=== PATIENT | female | born 1945 | race Caucasian/White ===

== ENCOUNTER → 2017-05-26 | Outpatient (CLI) | payer OTHER ==
[~2017-05-26] MED LIST: AMIO200T2 PO; APIX5TAB PO; ASPI-555 PO; DRON400T2 PO; METO-408 PO
== END | disposition home or self-care (01) ==
LOC: RAH 08:19
PROVIDERS: ATTEND Internal Medicine Cardiovascular Disease
DX: E78.00 Pure hypercholesterolemia, unspecified (principal); E74.8 Other specified disorders of carbohydrate metabolism
CPT/HCPCS: 76705

== ENCOUNTER → 2017-06-03 | Outpatient (CLI) | payer OTHER | END | disposition home or self-care (01) | LOC: SHCH 12:32 | PROVIDERS: ATTEND Internal Medicine Cardiovascular Disease | DX: I08.1 Rheumatic disorders of both mitral and tricuspid valves (principal); I31.3 Pericardial effusion (noninflammatory) | CPT/HCPCS: 93306 ==

== ENCOUNTER 2017-06-17 20:26 | Inpatient (IN) | payer OTHER ==
[~2017-06-17] VITALS: Ht 162.6 cm; Wt 59.6 kg
[2017-06-17] MEDS ORDERED: APIXABAN 2.5 MG TABLET PO ONE (20:47)
[2017-06-17] MEDS ORDERED: METOPROLOL TARTRATE 25 MG TAB ONE (20:48)
[2017-06-17 21:05] LABS: BASOPHILS % (AUTO) 1.2 % (0.0-5.0); EOSINOPHILS % (AUTO) 1.2 % (0.0-8.0); HEMATOCRIT 37.2 % (36-48); LYMPHOCYTES % (AUTO) 23.1 % (21.0-51.0); MEAN CORPUSCULAR HEMOGLOBIN 28.7 pg (27.0-33.0); MEAN CORPUSCULAR HGB CONC 34.2 g/dL (32.0-36.0); MEAN CORPUSCULAR VOLUME 84.1 fL (79-99); MONOCYTES % (AUTO) 6.2 % (3.0-13.0); NEUTROPHILS % (AUTO) 68.3 % (40.0-77.0); PLATELET COUNT (AUTO) 231 K/uL (130-400); RED BLOOD CELL COUNT(AUTO) 4.42 MIL/uL (4.00-5.50); RED CELL DISTRIBUTION WIDTH 15.3 % (11.0-15.5)
[2017-06-17 21:14] LABS: CREATININE 0.8 mg/dL (0.5-1.5); POTASSIUM 4.1 mmol/L (3.5-5.1)
[2017-06-17 21:15] LABS: INR 1.02 (0.85-1.15); PARTIAL THROMBOPLASTIN TIME 22.9 SEC (26.3-35.5); PROTHROMBIN TIME 10.7 SEC (9.6-11.6)
[2017-06-17 21:18] LABS: BILIRUBIN,TOTAL 0.7 mg/dL (0.2-1.0); TOTAL PROTEIN, SERUM 7.7 g/dL (6.0-8.3)
[2017-06-17] MEDS ORDERED: METOPROLOL TARTRATE 1 MG/ML 5ML VIAL IV ONE (23:14)
[2017-06-17 23:38] VITALS: BP 98/83
[2017-06-17] MEDS ORDERED: ASPI-555 PO (23:42)
[2017-06-18] VITALS (29 sets, daily range): BP systolic 75–150; BP diastolic 40–107
[2017-06-18] MEDS ORDERED: VERAPAMIL HCL 2.5 MG/ML VIAL IVP ONE (01:33)
[2017-06-18] MEDS ORDERED: LIDOCAINE HCL-MPF 1% 2ML VIAL IVP PRN (01:45)
[2017-06-18] MEDS ORDERED: POTASSIUM CHLORIDE 20 MEQ ERTAB PO PRN (01:45)
[2017-06-18] MEDS ORDERED: POTASSIUM CHLORIDE 10% ELIXIR 20 MEQ/15 ML UDCUP PO PRN (01:45)
[2017-06-18] MEDS: VERAPAMIL HCL 2.5 MG/ML VIAL IVP SCH (01:45)
[2017-06-18] MEDS ORDERED: POTASSIUM CHLORIDE 20MEQ/100ML 100 ML IV PRN (01:45)
[2017-06-18] MEDS ORDERED: ONDANSETRON HCL MDV 20ML 2 MG/ML VIAL ONE ×2 (03:02→07:45)
[2017-06-18] MEDS: ONDANSETRON HCL 4 MG/2 ML VIAL IV PRN ×2 (03:05→07:55)
[2017-06-18] MEDS ORDERED: METOPROLOL TARTRATE 1 MG/ML 5ML VIAL IV PRN (03:30)
[2017-06-18 05:05] LABS: BASOPHILS % (AUTO) 0.9 % (0.0-5.0); EOSINOPHILS % (AUTO) 0.5 % (0.0-8.0); HEMATOCRIT 38.5 % (36-48); LYMPHOCYTES % (AUTO) 14.2 % (21.0-51.0); MEAN CORPUSCULAR HEMOGLOBIN 28.3 pg (27.0-33.0); MEAN CORPUSCULAR HGB CONC 33.5 g/dL (32.0-36.0); MEAN CORPUSCULAR VOLUME 84.6 fL (79-99); MONOCYTES % (AUTO) 5.5 % (3.0-13.0); NEUTROPHILS % (AUTO) 78.9 % (40.0-77.0); PLATELET COUNT (AUTO) 228 K/uL (130-400); RED BLOOD CELL COUNT(AUTO) 4.54 MIL/uL (4.00-5.50); RED CELL DISTRIBUTION WIDTH 15.5 % (11.0-15.5); WHITE BLOOD COUNT (AUTO) 9.3 K/uL (4.8-10.8)
[2017-06-18 05:32] LABS: INR 1.12 (0.85-1.15); PARTIAL THROMBOPLASTIN TIME 23.8 SEC (26.3-35.5); PROTHROMBIN TIME 11.7 SEC (9.6-11.6)
[2017-06-18 05:47] LABS: ALBUMIN 3.5 g/dL (3.5-5.0); BILIRUBIN,TOTAL 1.2 mg/dL (0.2-1.0); CREATININE 1.2 mg/dL (0.5-1.5); POTASSIUM 4.7 mmol/L (3.5-5.1); TOTAL PROTEIN, SERUM 6.5 g/dL (6.0-8.3)
[2017-06-18] MEDS: METOPROLOL TARTRATE 25 MG TAB PO SCH ×2 (06:00→11:02)
[2017-06-18] MEDS ORDERED: MAG HYDROX/AL HYDROX/SIMETH ES 30 ML SUSP UDCUP PO PRN (06:30)
[2017-06-18] MEDS ORDERED: ACETAMINOPHEN 325 MG TAB PO PRN ×2 (06:30)
[2017-06-18] MEDS ORDERED: MORPHINE SULFATE 2 MG/ML 1ML SYG IV PRN (06:30)
[2017-06-18] MEDS ORDERED: ONDANSETRON HCL 4 MG/2 ML VIAL IV PRN (06:30)
[2017-06-18] MEDS ORDERED: GUAIFENESIN-DM 200/20 MG 10 ML PO PRN (06:30)
[2017-06-18] MEDS ORDERED: ACETAMINOPHEN-CODEINE 300/30MG TAB PO PRN (06:30)
[2017-06-18] MEDS ORDERED: LACTULOSE 20 GM/30 ML UDCUP PO PRN (06:30)
[2017-06-18] MEDS ORDERED: NITROGLYCERIN 0.4 MG SL TAB SL PRN (06:30)
[2017-06-18 06:54] LABS: MAGNESIUM 2.3 mg/dL (1.80-2.40); PHOSPHORUS 4.1 mg/dL (2.5-4.9)
[2017-06-18] MEDS ORDERED: SODIUM CHLORIDE 0.9% 1000ML 1,000 ML IV ONE (08:30)
[2017-06-18] MEDS: ASPIRIN 81 MG EC TAB PO SCH (09:00)
[2017-06-18] MEDS: FAMOTIDINE/PF 20 MG/2 ML VIAL IV SCH ×2 (09:00→21:00)
[2017-06-18] MEDS ORDERED: FENTANYL CITRATE PF 50 MCG/1 ML 2ML VIAL ONE (09:49)
[2017-06-18] MEDS ORDERED: MIDAZOLAM HCL 1 MG/ML 2ML VIAL ONE ×4 (09:49→13:41)
[2017-06-18] MEDS: BENZOCAINE 20% 57 GM SPRAY TP SCH (10:00)
[2017-06-18] MEDS ORDERED: HEPARIN SODIUM 1000UNIT/ML 10ML VIAL ONE (11:14)
[2017-06-18] MEDS ORDERED: LIDOCAINE HCL 2% 20ML ONE (11:14)
[2017-06-18] MEDS ORDERED: MEPERIDINE-PF 25 MG/ML SYG ONE ×3 (11:30→13:41)
[2017-06-18] MEDS ORDERED: AMIODARONE HCL 900MG/18ML IV ONE (13:45)
[2017-06-18] MEDS ORDERED: FLUMAZENIL 0.1MG/1ML 5ML VIAL IV ONE (14:19)
[2017-06-18] MEDS: DRONEDARONE HYDROCHLORIDE 400 MG TABLET PO SCH ×2 (15:00→21:55)
[2017-06-18] MEDS: APIXABAN 5 MG TABLET PO SCH (21:00)
[2017-06-18] MEDS ORDERED: APIXABAN 2.5 MG TABLET PO ONE (21:18)
[2017-06-19] VITALS: BP 103/48
[2017-06-19] MEDS: VERAPAMIL HCL 2.5 MG/ML VIAL IVP SCH (01:45)
[2017-06-19 04:00] VITALS: BP 120/68
[2017-06-19 04:49] LABS: ALBUMIN 3.3 g/dL (3.5-5.0); BILIRUBIN,TOTAL 0.9 mg/dL (0.2-1.0); CREATININE 1.3 mg/dL (0.5-1.5); MAGNESIUM 2.2 mg/dL (1.80-2.40); PHOSPHORUS 5.1 mg/dL (2.5-4.9); POTASSIUM 4.9 mmol/L (3.5-5.1); TOTAL PROTEIN, SERUM 6.3 g/dL (6.0-8.3)
[2017-06-19 05:09] LABS: HEMATOCRIT 35.6 % (36-48); MEAN CORPUSCULAR HEMOGLOBIN 28.6 pg (27.0-33.0); MEAN CORPUSCULAR VOLUME 84.3 fL (79-99); NUCLEATED RED BLOOD CELLS 0.1 % (0.0-0.19); PLATELET COUNT (AUTO) 260 K/uL (130-400); RED BLOOD CELL COUNT(AUTO) 4.22 MIL/uL (4.00-5.50); RED CELL DISTRIBUTION WIDTH 15.3 % (11.0-15.5); WHITE BLOOD COUNT (AUTO) 10.4 K/uL (4.8-10.8)
[2017-06-19 06:36] LABS: BAND NEUTROPHILS % (MANUAL) 6 % (0-2); LYMPHOCYTES % (MANUAL) 9 % (22-44); MAN.DIFF COMMENT-IMPRESSION MANUAL DIFFERENTIAL; MONOCYTES % (MANUAL) 5 % (2-9); PLATELET MORPHOLOGY COMMENT ADEQUATE; SEGMENTED NEUTROPHILS % 80 % (40-70)
[2017-06-19] MEDS: BENZOCAINE 20% 57 GM SPRAY TP SCH (07:32)
[2017-06-19 08:00] VITALS: BP 120/72
[2017-06-19] MEDS: DRONEDARONE HYDROCHLORIDE 400 MG TABLET PO SCH (08:18)
[2017-06-19] MEDS: ASPIRIN 81 MG EC TAB PO SCH (08:19)
[2017-06-19] MEDS: APIXABAN 5 MG TABLET PO SCH (08:28)
[2017-06-19] MEDS ORDERED: FAMOTIDINE 20MG TAB 20 MG TAB PO SCH (09:00)
[2017-06-19 11:26] VITALS: BP 122/76
[2017-06-19 16:40] VITALS: BP 122/84
[2017-07-22] MEDS ORDERED: AMIO200T2 PO (11:43)
== END 2017-06-19 19:25 | disposition home or self-care (01) | DRG 274 ==
LOC: EDH 20:26 → EDHIP 21:26 → 2DH 23:26 → 2CV 06-18 06:55 → 2BH 06-18 08:26 → 2AH 06-18 18:36
PROVIDERS: ADMIT Internal Medicine; ATTEND Internal Medicine
PROC: 4A027FZ Measurement of Cardiac Rhythm, Via Natural or Artificial Opening (ICD-10-PCS; principal; 2017-06-19)
PROC: 4A0274Z Measurement of Cardiac Electrical Activity, Via Natural or Artificial Opening (ICD-10-PCS; 2017-06-19)
PROC: 5A2204Z Restoration of Cardiac Rhythm, Single (ICD-10-PCS; 2017-06-19)
DX: I48.92 Unspecified atrial flutter (principal); I42.9 Cardiomyopathy, unspecified; E78.5 Hyperlipidemia, unspecified; I48.91 Unspecified atrial fibrillation; Z79.01 Long term (current) use of anticoagulants; Z82.49 Family history of ischemic heart disease and other diseases of the circulatory system; Z28.21 Immunization not carried out because of patient refusal
CPT/HCPCS: 36415; 71045; 74176; 76705; 80053; 83735; 84100; 85025; 85610; 85730; 92960; 93005; 93306; 93312; 93613; 93620; 93621; 99152; 99153; C1730; C1732; C1894; J0282; J1644; J2175; J2250; J3010; J3490; J7030

== ENCOUNTER 2017-07-20 08:03 | Observation (INO) | payer OTHER ==
[~2017-07-20] VITALS: Ht 162.6 cm; Wt 55.1 kg
[~2017-07-20 08:03] MED LIST changes: -AMIO200T2 PO; -APIX5TAB PO; -DRON400T2 PO; -METO-408 PO
[2017-07-20] MEDS ORDERED: ASPIRIN 325 MG TABLET ONE (08:20)
[2017-07-20] MEDS ORDERED: METOPROLOL TARTRATE 1 MG/ML 5ML VIAL IV ONE ×3 (08:23→08:57)
[2017-07-20 08:36] LABS: POTASSIUM 4.2 mmol/L (3.5-5.1)
[2017-07-20 08:40] LABS: BASOPHILS % (AUTO) 3.5 % (0.0-5.0); EOSINOPHILS % (AUTO) 1.4 % (0.0-8.0); HEMATOCRIT 46.6 % (36-48); MEAN CORPUSCULAR HEMOGLOBIN 27.3 pg (27.0-33.0); MEAN CORPUSCULAR HGB CONC 32.8 g/dL (32.0-36.0); MEAN CORPUSCULAR VOLUME 83.4 fL (79-99); MONOCYTES % (AUTO) 7.1 % (3.0-13.0); NUCLEATED RED BLOOD CELLS 0.1 % (0.0-0.19); PLATELET COUNT (AUTO) 291 K/uL (130-400); RED BLOOD CELL COUNT(AUTO) 5.59 MIL/uL (4.00-5.50); RED CELL DISTRIBUTION WIDTH 15.1 % (11.0-15.5); WHITE BLOOD COUNT (AUTO) 8.4 K/uL (4.8-10.8)
[2017-07-20 08:41] LABS: INR 1.01 (0.85-1.15); PARTIAL THROMBOPLASTIN TIME 25.9 SEC (26.3-35.5); PROTHROMBIN TIME 10.6 SEC (9.6-11.6)
[2017-07-20 08:49] LABS: ALBUMIN 4.1 g/dL (3.5-5.0); BILIRUBIN,TOTAL 0.4 mg/dL (0.2-1.0); CREATINE KINASE MB 0.8 ng/mL (0.5-3.6); TOTAL PROTEIN, SERUM 8.1 g/dL (6.0-8.3)
[2017-07-20 08:52] LABS: B-TYPE NATRIURETIC PEPTIDE 202 pg/mL (0-100)
[2017-07-20] MEDS ORDERED: ACETAMINOPHEN 325 MG TAB PO PRN ×2 (10:00)
[2017-07-20] MEDS ORDERED: GUAIFENESIN-DM 200/20 MG 10 ML PO PRN (10:00)
[2017-07-20] MEDS ORDERED: ONDANSETRON HCL MDV 20ML 2 MG/ML VIAL IVP PRN (10:00)
[2017-07-20] MEDS ORDERED: MAG HYDROX/AL HYDROX/SIMETH ES 30 ML SUSP UDCUP PO PRN (10:00)
[2017-07-20] MEDS ORDERED: LACTULOSE 20 GM/30 ML UDCUP PO PRN (10:00)
[2017-07-20] MEDS ORDERED: NITROGLYCERIN 0.4 MG SL TAB SL PRN (10:00)
[2017-07-20] MEDS ORDERED: DIGOXIN 250 MCG/ML 2ML AMP ONE (10:39)
[2017-07-20] MEDS ORDERED: DIGOXIN 250 MCG/ML 2ML AMP IV SCH (10:45)
[2017-07-20 14:50] VITALS: BP 119/75
[2017-07-20 16:41] VITALS: BP 109/58
[2017-07-20 19:41] VITALS: BP 109/75
[2017-07-20] MEDS: APIXABAN 5 MG TABLET PO SCH (19:52)
[2017-07-20] MEDS: METOPROLOL TARTRATE 25 MG TAB PO SCH (19:52)
[2017-07-20] MEDS: FAMOTIDINE/PF 20 MG/2 ML VIAL IV SCH (19:53)
[2017-07-20] MEDS: DRONEDARONE HYDROCHLORIDE 400 MG TABLET PO SCH (20:15)
[2017-07-20 23:53] VITALS: BP 91/60
[2017-07-21 04:00] VITALS: BP 94/55
[2017-07-21 04:46] LABS: CREATININE 1.2 mg/dL (0.5-1.5); MAGNESIUM 2.1 mg/dL (1.80-2.40); PHOSPHORUS 4.4 mg/dL (2.5-4.9); POTASSIUM 5.6 mmol/L (3.5-5.1)
[2017-07-21 07:54] VITALS: BP 104/76
[2017-07-21] MEDS: FAMOTIDINE/PF 20 MG/2 ML VIAL IV SCH ×2 (08:29→20:26)
[2017-07-21] MEDS: APIXABAN 5 MG TABLET PO SCH ×2 (08:29→20:26)
[2017-07-21] MEDS: METOPROLOL TARTRATE 25 MG TAB PO SCH ×2 (08:29→20:26)
[2017-07-21] MEDS: DRONEDARONE HYDROCHLORIDE 400 MG TABLET PO SCH (08:29)
[2017-07-21] MEDS ORDERED: ASPIRIN 81MG TAB.CHEW PO SCH (09:00)
[2017-07-21] MEDS ORDERED: ASPIRIN 325 MG TABLET PO SCH (09:00)
[2017-07-21] MEDS ORDERED: MORPHINE SULFATE 4 MG/1ML SYG IVP PRN ×2 (09:00→09:15)
[2017-07-21] MEDS ORDERED: MORPHINE SULFATE 2 MG/ML 1ML SYG IVP PRN (09:00)
[2017-07-21] MEDS ORDERED: ACETAMINOPHEN-CODEINE 300/30MG TAB PO PRN ×2 (09:00)
[2017-07-21 11:48] VITALS: BP 110/71
[2017-07-21 16:46] VITALS: BP 100/64
[2017-07-21] MEDS ORDERED: AMIODARONE HCL 900 MG in DEXTROSE 5%-WATER 500 ML IV SCH (19:00)
[2017-07-21] MEDS ORDERED: AMIODARONE HCL 150 MG in DEXTROSE 5%-WATER 100 ML IV SCH (19:00)
[2017-07-21 20:17] VITALS: BP 120/70
[2017-07-22 01:22] VITALS: BP 107/68
[2017-07-22 04:01] VITALS: BP 124/75
[2017-07-22 04:23] LABS: HEMATOCRIT 43.4 % (36-48); MEAN CORPUSCULAR HEMOGLOBIN 27.8 pg (27.0-33.0); MEAN CORPUSCULAR HGB CONC 33.2 g/dL (32.0-36.0); PLATELET COUNT (AUTO) 258 K/uL (130-400); RED BLOOD CELL COUNT(AUTO) 5.17 MIL/uL (4.00-5.50); RED CELL DISTRIBUTION WIDTH 14.9 % (11.0-15.5); WHITE BLOOD COUNT (AUTO) 7.7 K/uL (4.8-10.8)
[2017-07-22 04:35] LABS: POTASSIUM 5.5 mmol/L (3.5-5.1)
[2017-07-22] MEDS: METOPROLOL TARTRATE 25 MG TAB PO SCH (06:54)
[2017-07-22 08:01] VITALS: BP 147/70
[2017-07-22] MEDS ORDERED: PROPOFOL 10 MG/ML 20ML VIAL IV ONE (11:14)
[2017-07-22 11:39] VITALS: BP 108/59
[2017-07-22] MEDS ORDERED: AMIO200T5 PO (11:43)
[2017-07-22] MEDS ORDERED: METO-408 PO (11:43)
[2017-07-22] MEDS ORDERED: APIX5TAB PO (11:44)
[2017-07-22] MEDS ORDERED: DRON400T2 PO (11:44)
[2017-07-22] MEDS ORDERED: AMIODARONE HCL 200 MG TABLET PO SCH (15:00)
[2017-07-22 16:32] VITALS: BP 102/60
== END 2017-07-22 18:15 | disposition home or self-care (01) ==
LOC: EDH 08:03 → EDHIP 09:47 → 2DH 15:04
PROVIDERS: ADMIT Family Medicine; ATTEND Family Medicine
DX: I48.4 Atypical atrial flutter (principal); I48.91 Unspecified atrial fibrillation; I45.89 Other specified conduction disorders; Z86.718 Personal history of other venous thrombosis and embolism; D68.69 Other thrombophilia; Z79.01 Long term (current) use of anticoagulants; N19 Unspecified kidney failure; I42.9 Cardiomyopathy, unspecified; I34.0 Nonrheumatic mitral (valve) insufficiency; E78.5 Hyperlipidemia, unspecified
CPT/HCPCS: 36415 ×3; 71045; 80048 ×2; 80053; 82550; 82553; 82948 ×3; 83735; 83874; 83880; 84100; 84132; 84443; 84484; 85025; 85027; 85610; 85730; 92960; 93005 ×2; 93970; 96365; 96366 ×2; 96375 ×2; 96376; 99291; G0378 ×56; J0282 ×2; J1160; J2704; J3490 ×6; J7060 ×2

== ENCOUNTER → 2017-09-04 | Outpatient (CLI) | payer OTHER ==
[~2017-09-04] MED LIST changes: +AMIO200T5 PO; +APIX5TAB PO; -ASPI-555 PO; +METO-408 PO
== END | disposition home or self-care (01) ==
LOC: SHCH 10:24
PROVIDERS: ATTEND Internal Medicine Cardiovascular Disease
DX: I48.4 Atypical atrial flutter (principal)
CPT/HCPCS: 93306

== ENCOUNTER → 2017-12-11 | Outpatient (CLI) | payer OTHER | END | disposition home or self-care (01) | LOC: RAH 07:41 | PROVIDERS: ATTEND Physician Assistant Medical | DX: R92.8 Other abnormal and inconclusive findings on diagnostic imaging of breast (principal) | CPT/HCPCS: 77066 ==

== ENCOUNTER → 2018-03-16 | Outpatient (CLI) | payer OTHER | END | disposition home or self-care (01) | LOC: SHCH 08:08 | PROVIDERS: ATTEND Internal Medicine Cardiovascular Disease | DX: I34.0 Nonrheumatic mitral (valve) insufficiency (principal); I50.32 Chronic diastolic (congestive) heart failure; I63.9 Cerebral infarction, unspecified | CPT/HCPCS: 93306 ==

== ENCOUNTER 2018-05-11 05:54 | Day surgery (SDC) | payer OTHER ==
[2018-05-08 08:56] VITALS: BP 171/76
[2018-05-08 09:05] LABS: BASOPHILS % (AUTO) 1.7 % (0.0-5.0); EOSINOPHILS % (AUTO) 1.8 % (0.0-8.0); HEMATOCRIT 38.2 % (36-48); LYMPHOCYTES % (AUTO) 20.1 % (21.0-51.0); MEAN CORPUSCULAR HEMOGLOBIN 28.3 pg (27.0-33.0); MEAN CORPUSCULAR HGB CONC 32.7 g/dL (32.0-36.0); MEAN CORPUSCULAR VOLUME 86.8 fL (79-99); MONOCYTES % (AUTO) 7.8 % (3.0-13.0); NEUTROPHILS % (AUTO) 68.6 % (40.0-77.0); NUCLEATED RED BLOOD CELLS 0.1 % (0.0-0.19); PLATELET COUNT (AUTO) 253 K/uL (130-400); RED CELL DISTRIBUTION WIDTH 15.2 % (11.0-15.5); WHITE BLOOD COUNT (AUTO) 6.3 K/uL (4.8-10.8)
[2018-05-08 09:07] LABS: APPEARANCE,URINE Clear (CLEAR); BILIRUBIN,URINE Negative (NEGATIVE); COLOR,URINE Yellow (YELLOW); GLUCOSE, URINE (UA) Negative (NEGATIVE); KETONES,URINE Negative (NEGATIVE); LEUKOCYTE ESTERASE ,URINE Negative (NEGATIVE); NITRATE,URINE Negative (NEGATIVE); OCCULT BLOOD,URINE Negative (NEGATIVE); PH,URINE 5.5 (5.0-8.0); PROTEIN,URINE Negative (NEGATIVE); UROBILINOGEN,URINE 0.2 mg/dL (0.2-1.0)
[2018-05-08 09:15] LABS: POTASSIUM 4.7 mmol/L (3.5-5.1)
[2018-05-08 09:18] LABS: INR 1.07 (0.85-1.15); PARTIAL THROMBOPLASTIN TIME 29.2 SEC (26.3-35.5); PROTHROMBIN TIME 11.2 SEC (9.6-11.6)
[~2018-05-11] VITALS: Ht 162.6 cm; Wt 63.6 kg
[2018-05-11] VITALS (24 sets, daily range): BP systolic 81–185; BP diastolic 36–97
[2018-05-11] MEDS ORDERED: SODIUM CHLORIDE 0.9% 1000ML 1,000 ML IV ONE (06:11)
--- NOTE | 2018-05-11 06:20 | NUR ---
RECEIVED ,SITTING AT SIDE OF BED ,STATES VERY NERVOUS ,DISTRACTED HER TALKING ,MAKING HER FEEL COMFORTABLE POSSIBLE,STATES FEELS BETTER ,AND ALSO EXPLAINED TO HER WHAT TO EXPECT POST CATH ,VERBALIZE UNDERSTANDING,,FRIEND AT BEDSIDE ,,STATES INFORMATION CAN BE GIVEN TO HER FRIEND.,THATS AT BEDSIDE ,CALLBELL IN REACH
--- NOTE | 2018-05-11 07:46 | NUR ---
DI CHILDS AWARE OF B/P,ASSISTED PT TO BR,VOIDS ,,,,PT TO [facility] SHUCKER,
[2018-05-11] MEDS ORDERED: BIVALIRUDIN 250 MG/VIAL IV ONE (07:50)
[2018-05-11] MEDS ORDERED: IOHEXOL 350 MG/ML 100ML INFUS..BTL IV ONE (07:51)
[2018-05-11] MEDS ORDERED: LIDOCAINE HCL 2% 20ML ONE (07:51)
[2018-05-11] MEDS ORDERED: NITROGLYCERIN 5 MG/ML 10 ML VIAL IV ONE (07:51)
[2018-05-11] MEDS ORDERED: IOHEXOL-350 50ML VIAL IV ONE (07:51)
[2018-05-11] MEDS ORDERED: HYDRALAZINE HCL 20 MG/ML VIAL ONE (08:52)
[2018-05-11] MEDS ORDERED: SODIUM CHLORIDE 0.9% 1000ML 1,000 ML IV SCH (08:54)
--- NOTE | 2018-05-11 09:20 | NUR ---
RECEIVED AWAKE ,DRESSING TYO RT GROIN CLEAN AND DRY,NO HEMATOMA,PEDAL PULSES PRESENT,,,,B/P--100/51-52-12-96 O2 SAT,,,AWARE TO KEEP RT LEG STRAIGHT ,AND NO HEAD LIFTING,,,VERBALIZE UNDERSTANDING,,YARELI RN IN TO VERIFY DRESSING AND PULSES
--- NOTE | 2018-05-11 09:35 | NUR ---
92/41-- 02 SAT---YANETH CHILDS IN TO CHECK ON PT--DR CHA AWARE OF B/P --NO ORDERS
--- NOTE | 2018-05-11 10:05 | NUR ---
READAJUSTED B/P-- PT ASYMPTOMATIC ,TALKING WITH FRIEND,,NO HEMATOMA ,NO BLEEDING TO RT GROIN ,PEDAL PULSES PRESENT,TAKING BP
--- NOTE | 2018-05-11 10:20 | NUR ---
CONTINUE O MONITOR---RT GROIN WITH NO HEMATOMA,NO BLEEDING,TALKING WITH FREIND ,NO COMPLAINTS
--- NOTE | 2018-05-11 10:40 | NUR ---
COMPLAINTS OF CHEST PRESSURE VERY LIGHTLY STATES TO MID CHEST --DR CHA CALLED BY CHARLIE CHILDS,AND ALSO AWARE OF V/S ORDER GIVEN ,,,EKG BEING DONE,NO OTHER COMPLAINTS,,SITE TO RT GROIN ,WITH NO HEMATOMA,NO BLEEDING,PEDAL PULSES PRESENT
--- NOTE | 2018-05-11 10:50 | NUR ---
EKG DONE ,PT WITH DISCOMFORT TO CHEST
--- NOTE | 2018-05-11 10:59 | NUR ---
SMALL SPOT TO RT GROIN ,PRESSURE BEING APPLIED ,DR CHA AWARE ,,TALKS WITH FAMILY,AWARE OF BP,WILL CONTINUE TO MONITOR
--- NOTE | 2018-05-11 11:25 | NUR ---
EATS JELLO ,WITH NO PROBLEM
--- NOTE | 2018-05-11 13:59 | NUR ---
RT GROIN SITE WITH NO DRAINAGE INCREASE TO DRESSING ON RT GROIN,,SITE WITH NO BLEEDING,NO HEMATOMA,ALSO VERIFIED BY YANETH RN,PT RESTING COMFORTABLY,CALL JONES IN REACH
--- NOTE | 2018-05-11 14:43 | NUR ---
REPORT GIVEN TO ODIN CHILDS ,,IN ROOM ,CHECKS ON PT STATUS
== END 2018-05-11 16:00 | disposition home or self-care (01) ==
LOC: DAH 05:54
PROVIDERS: ATTEND Internal Medicine Cardiovascular Disease
DX: I34.0 Nonrheumatic mitral (valve) insufficiency (principal); D68.69 Other thrombophilia; I51.7 Cardiomegaly; I48.3 Typical atrial flutter; Z79.899 Other long term (current) drug therapy; Z98.890 Other specified postprocedural states; Z79.01 Long term (current) use of anticoagulants; I49.9 Cardiac arrhythmia, unspecified
CPT/HCPCS: 36415; 71045; 80048; 81003; 85025; 85610; 85730; 93005 ×2; 93460; A4606; C1760; C1894 ×2; J0360; J1644; J3490 ×2; J7030; Q9965 ×2; Q9967 ×2; J0583

== ENCOUNTER → 2018-12-21 | Outpatient (CLI) | payer OTHER ==
[~2018-12-21] MED LIST changes: -METO-408 PO
== END | disposition home or self-care (01) ==
LOC: RAH 10:24
PROVIDERS: ATTEND Internal Medicine Critical Care Medicine
DX: Z12.31 Encounter for screening mammogram for malignant neoplasm of breast (principal)
CPT/HCPCS: 77067

== ENCOUNTER → 2018-12-22 | Outpatient (CLI) | payer OTHER | END | disposition home or self-care (01) | LOC: SHCH 15:59 | PROVIDERS: ATTEND Internal Medicine Cardiovascular Disease | DX: I48.4 Atypical atrial flutter (principal); Z95.2 Presence of prosthetic heart valve | CPT/HCPCS: 93306 ==

== ENCOUNTER → 2019-12-24 | Outpatient (CLI) | payer OTHER | END | disposition home or self-care (01) | LOC: RAH 09:07 | PROVIDERS: ATTEND Physician Assistant Medical | DX: Z12.31 Encounter for screening mammogram for malignant neoplasm of breast (principal); Z98.82 Breast implant status | CPT/HCPCS: 77067 ==

== ENCOUNTER → 2020-01-12 | Outpatient (CLI) | payer OTHER ==
[~2020-01-12] MED LIST changes: +ALBUTEROL SULFATE 0.083% 2.5 MG/3 ML INH IH ONE; -AMIO200T5 PO; +AMIO200T6 PO
== END | disposition home or self-care (01) ==
LOC: RESP 08:59
PROVIDERS: ATTEND Internal Medicine Cardiovascular Disease
DX: Z51.81 Encounter for therapeutic drug level monitoring (principal); Z79.899 Other long term (current) drug therapy
CPT/HCPCS: 94060; 94727; 94729

== ENCOUNTER 2020-10-03 18:20 | Emergency (ER) | payer OTHER ==
[~2020-10-03] VITALS: Ht 162.6 cm; Wt 61.2 kg
[~2020-10-03 18:20] MED LIST changes: -ALBUTEROL SULFATE 0.083% 2.5 MG/3 ML INH IH ONE
[2020-10-03 18:36] VITALS: BP 219/109
[2020-10-03 19:30] VITALS: BP 178/68
[2020-10-03 20:11] LABS: INR 1.05 (0.85-1.15); PROTHROMBIN TIME 11.4 SEC (9.6-11.6)
[2020-10-03 20:13] LABS: PARTIAL THROMBOPLASTIN TIME 26.7 SEC (26.3-35.5)
[2020-10-03] MEDS ORDERED: TRAM50TA4 PO (21:31)
[2020-10-03 22:32] VITALS: BP 174/78
== END 2020-10-03 22:34 | disposition home or self-care (01) ==
LOC: EDH 18:44
DX: S93.601A Unspecified sprain of right foot, initial encounter (principal); S90.31XA Contusion of right foot, initial encounter; Z95.2 Presence of prosthetic heart valve; Z79.01 Long term (current) use of anticoagulants; W20.8XXA Other cause of strike by thrown, projected or falling object, initial encounter; Y93.89 Activity, other specified; Y92.488 Other paved roadways as the place of occurrence of the external cause; Y99.8 Other external cause status
CPT/HCPCS: 36415; 73610; 73630; 85610; 85730; 93005

== ENCOUNTER → 2021-01-08 | Outpatient (CLI) | payer OTHER ==
[~2021-01-08] MED LIST changes: +TRAM50TA4 PO
== END | disposition home or self-care (01) ==
LOC: RAH 11:47
PROVIDERS: ATTEND Internal Medicine Critical Care Medicine
DX: Z12.31 Encounter for screening mammogram for malignant neoplasm of breast (principal)
CPT/HCPCS: 77067

== ENCOUNTER → 2022-01-14 | Outpatient (CLI) | payer OTHER ==
[~2022-01-14] MED LIST changes: -AMIO200T6 PO; +AMIO200T68 PO; +ATOR20TA65 PO; +CALC-866 PO; +NITR100C PO; -TRAM50TA4 PO; +ZINC220T4 PO
== END | disposition home or self-care (01) ==
LOC: RAH 13:53
PROVIDERS: ATTEND Physician Assistant Medical
DX: Z12.31 Encounter for screening mammogram for malignant neoplasm of breast (principal)
CPT/HCPCS: 77067

== ENCOUNTER → 2022-03-06 | Outpatient (CLI) | payer OTHER ==
[2022-03-06 12:40] LABS: POTASSIUM 3.9 mmol/L (3.5-5.1)
== END | disposition home or self-care (01) ==
LOC: LAB 10:11
PROVIDERS: ATTEND Internal Medicine Cardiovascular Disease
DX: I50.32 Chronic diastolic (congestive) heart failure (principal)
CPT/HCPCS: 36415; 80048

== ENCOUNTER → 2023-01-15 | Outpatient (CLI) | payer OTHER | END | disposition home or self-care (01) | LOC: RAH 15:53 | PROVIDERS: ATTEND Physician Assistant Medical | DX: Z12.31 Encounter for screening mammogram for malignant neoplasm of breast (principal) | CPT/HCPCS: 77067 ==

== ENCOUNTER → 2023-03-12 | Outpatient (CLI) | payer OTHER | END | disposition home or self-care (01) | LOC: RESP 09:10 | PROVIDERS: ATTEND Internal Medicine Cardiovascular Disease | DX: I48.92 Unspecified atrial flutter (principal); Z95.2 Presence of prosthetic heart valve | CPT/HCPCS: 94010; 94729 ==

== ENCOUNTER 2023-04-19 10:13 | Emergency (ER) | payer OTHER ==
[~2023-04-19] VITALS: Ht 160 cm; Wt 56.7 kg
[2023-04-19 10:22] VITALS: BP 174/83; PULSE 69; RESP 18
[2023-04-19 11:49] LABS: BASOPHILS # (AUTO) 0.11 K/uL (0.00-0.20); BASOPHILS % (AUTO) 1.1 % (0.0-5.0); EOSINOPHILS # (AUTO) 0.02 K/uL (0.00-0.70); EOSINOPHILS % (AUTO) 0.2 % (0.0-8.0); HEMATOCRIT 36.2 % (36-48); IMMATURE GRANULOCYTE ABSOLUTE 0.03 K/uL (0-1); LYMPHOCYTES # (AUTO) 1.5 K/uL (1.0-4.8); LYMPHOCYTES % (AUTO) 15.5 % (21.0-51.0); MEAN CORPUSCULAR HEMOGLOBIN 26.9 pg (27.0-33.0); MEAN CORPUSCULAR HGB CONC 32.3 g/dL (32.0-36.0); MEAN CORPUSCULAR VOLUME 83.2 fL (79-99); MONOCYTES # (AUTO) 0.5 K/uL (0.1-1.0); MONOCYTES % (AUTO) 5.4 % (3.0-13.0); NEUTROPHILS # (AUTO) 7.5 K/uL (1.8-7.7); NEUTROPHILS % (AUTO) 77.5 % (40.0-77.0); PLATELET COUNT (AUTO) 271 K/uL (130-400); RED BLOOD CELL COUNT(AUTO) 4.35 MIL/uL (4.00-5.50); RED CELL DISTRIBUTION WIDTH 15.4 % (11.0-15.5); WHITE BLOOD COUNT (AUTO) 9.6 K/uL (4.8-10.8)
[2023-04-19 11:58] LABS: CREATININE 1.1 mg/dL (0.5-1.5)
[2023-04-19 12:01] LABS: INR 0.99 (0.85-1.15); PROTHROMBIN TIME 11.5 SEC (9.6-11.6)
[2023-04-19 12:02] LABS: PARTIAL THROMBOPLASTIN TIME 28.1 SEC (26.3-35.5)
== END 2023-04-19 12:51 | disposition home or self-care (01) ==
LOC: EDH 10:13
DX: K14.0 Glossitis (principal); I48.91 Unspecified atrial fibrillation; E78.00 Pure hypercholesterolemia, unspecified; I10 Essential (primary) hypertension; Z79.01 Long term (current) use of anticoagulants; Z95.2 Presence of prosthetic heart valve
CPT/HCPCS: 36415; 80048; 85025; 85610; 85730; 99282

== ENCOUNTER → 2023-04-21 | Outpatient (CLI) | payer OTHER ==
[2023-04-21 16:24] LABS: POTASSIUM 4.8 mmol/L (3.5-5.1)
== END | disposition home or self-care (01) ==
LOC: LAB 13:21
PROVIDERS: ATTEND Internal Medicine Cardiovascular Disease
DX: I10 Essential (primary) hypertension (principal)
CPT/HCPCS: 36415; 80048

== ENCOUNTER → 2023-04-29 | Outpatient (CLI) | payer OTHER | END | disposition home or self-care (01) | LOC: RAH 10:25 | PROVIDERS: ATTEND Internal Medicine Cardiovascular Disease | DX: J44.9 Chronic obstructive pulmonary disease, unspecified (principal); I48.0 Paroxysmal atrial fibrillation; R94.2 Abnormal results of pulmonary function studies; J84.10 Pulmonary fibrosis, unspecified; M47.815 Spondylosis without myelopathy or radiculopathy, thoracolumbar region; I25.10 Atherosclerotic heart disease of native coronary artery without angina pectoris | CPT/HCPCS: 71250 ==

== ENCOUNTER → 2024-01-26 | Outpatient (CLI) | payer OTHER ==
[2024-01-26 12:24] LABS: BASOPHILS # (AUTO) 0.13 K/uL (0.00-0.20); BASOPHILS % (AUTO) 1.2 % (0.0-5.0); HEMATOCRIT 42.7 % (36-48); IMMATURE GRANULOCYTE ABSOLUTE 0.03 K/uL (0-1); LYMPHOCYTES # (AUTO) 2.4 K/uL (1.0-4.8); MEAN CORPUSCULAR HEMOGLOBIN 27.2 pg (27.0-33.0); MEAN CORPUSCULAR HGB CONC 30.9 g/dL (32.0-36.0); MONOCYTES # (AUTO) 0.6 K/uL (0.1-1.0); NEUTROPHILS # (AUTO) 7.2 K/uL (1.8-7.7); NEUTROPHILS % (AUTO) 68.5 % (40.0-77.0); PLATELET COUNT (AUTO) 315 K/uL (130-400); RED BLOOD CELL COUNT(AUTO) 4.85 MIL/uL (4.00-5.50); WHITE BLOOD COUNT (AUTO) 10.5 K/uL (4.8-10.8)
[2024-01-26 12:41] LABS: ALBUMIN 3.8 g/dL (3.5-5.0); BILIRUBIN,TOTAL 0.6 mg/dL (0.2-1.0); POTASSIUM 4.6 mmol/L (3.5-5.1)
== END | disposition home or self-care (01) ==
LOC: LAB 08:04
PROVIDERS: ATTEND Internal Medicine Cardiovascular Disease
DX: I48.91 Unspecified atrial fibrillation (principal); D68.59 Other primary thrombophilia; I10 Essential (primary) hypertension
CPT/HCPCS: 36415; 80053; 80061; 85025

== ENCOUNTER → 2025-01-20 | Outpatient (CLI) | payer OTHER ==
[~2025-01-20] MED LIST changes: -AMIO200T68 PO; +AMIO200T73 PO
== END | disposition home or self-care (01) ==
LOC: RAH 15:30
PROVIDERS: ATTEND Physician Assistant Medical
DX: Z12.31 Encounter for screening mammogram for malignant neoplasm of breast (principal)
CPT/HCPCS: 77067

== ENCOUNTER 2025-03-04 16:17 | Inpatient (IN) | payer OTHER ==
[~2025-03-04] VITALS: Ht 160 cm; Wt 55.9 kg
--- NOTE | 2025-03-04 16:31 | NUR ---
PT JUST NOW OFFLOADED BY EMS
--- NOTE | 2025-03-04 16:33 | ERN ---
General Chief Complaint: Dizzy/Light Headed Stated Complaint: DIZZINESS Time Seen by MD: 16:20 Source: EMS History of Present Illness Initial Comments My Patient, 79-year-old female, was brought to the emergency department by EMS with complaint of dizziness. Patient states that she has been having dizziness for the past 2-3 weeks. Episodes are self-limited and resolve quickly. This episode persisted and she decided to seek care. She states that she felt chest pressure with this episode. She denies any particular triggers leading to dizziness. She denies sensation of spinning which could be seen with vertigo. She denies syncope or falling down. Timing/Duration: 4-6 hours Severity: mild Allergies: Coded Allergies: No Known Allergies (Unverified Allergy, Unknown, 06/18/17) Home Meds Active Scripts Amiodarone HCl (Amiodarone HCl) 200 Mg Tablet, 200 MG PO DAILY, #30 TAB 3 Refills Prov:VANDA GARNER MD 07/22/17 Reported Medications Nitrofurantoin Macrocrystal (Nitrofurantoin) 100 Mg Capsule, 100 MG PO AD, CAP 08/20/21 Cholecalciferol (Vitamin D3) (Vitamin D3) 125 Mcg Tablet, 125 MCG PO AD, TAB 08/20/21 Zinc Sulfate (Zinc) 50 Mg Tablet, 50 MG PO DAILY, TAB 08/20/21 Atorvastatin Calcium (Atorvastatin Calcium) 20 Mg Tablet, 20 MG PO HS, TAB 08/20/21 Apixaban (Eliquis) 5 Mg Tablet, 5 MG PO BID, TAB 07/22/17 Past Medical History Past Medical History: A-Fib, High Cholesterol Medical History Other: VALVE REPLACEMENT, DOES NOT RECALL VALVE Past Surgical History: Other Surgical History Other: CARDIAC STENTS Female( History) History: Not Applicable Constitutional: (+) weakness; (-) chills, (-) diaphoresis, (-) fever, (-) malaise, (-) other documentation EENTM: (-) eye pain, (-) blurred vision, (-) tearing, (-) double vision, (-) ear pain, (-) ear discharge, (-) nose pain, (-) nose congestion, (-) throat pain, (-) Throat swelling, (-) mouth pain, (-) tooth pain, (-) mouth swelling, (-) other documentation Respiratory: (-) cough, (-) orthopnea, (-) short of breath, (-) stridor, (-) wheezing, (-) other documentation Cardiovascular: (-) chest pain, (-) edema, (-) palpitations, (-) syncope, (-) dyspnea on exertion, (-) other documentation Gastrointestinal/Abdominal: (-) nausea, (-) vomiting, (-) diarrhea, (-) abdominal pain, (-) abdominal distention, (-) constipation, (-) rectal bleeding, (-) dark stool/melena, (-) other documentation Genitourinary: (-) vaginal discharge, (-) vaginal bleeding, (-) dysuria, (-) frequency, (-) hematuria, (-) pain, (-) other documentation Musculoskeletal: (-) Neck pain, (-) back pain, (-) Flank Pain, (-) joint pain, (-) joint swelling, (-) muscle pain, (-) muscle stiffness, (-) gout, (-) other documentation Skin: (-) laceration, (-) contusion, (-) abrasion, (-) abscess, (-) rash, (-) change in color, (-) change in hair, (-) change in nails, (-) diaphoresis, (-) dryness, (-) other documentation Neuro: (+) dizziness Psych: (-) depression, (-) suicidal ideation, (-) anxiety, (-) emotional problems, (-) auditory hallucinations, (-) visual hallucinations Hematologic/Lymphatic: (-) anemia, (-) blood clots, (-) easy bleeding, (-) easy bruising, (-) swollen glands, (-) other documentation Physical Exam General Appearance: (+) mild distress Orientation: (+) alert, (+) oriented x 3 Head/Face Trauma: No Eye: bilateral eye normal inspection Ear, Nose, Throat: (+) hearing grossly normal, (+) normal ENT inspection, (+) moist mucous membraine, (+) normal pharynx Neck: (+) normal inspection, (+) supple, (+) full range of motion Respiratory: (+) chest non-tender, (+) lungs clear, (+) well ventilated Heart: (+) regular, (+) no gallop Vascular: (+) no edema Gastrointestinal: (+) soft, (+) non-tender Back: (+) normal inspection, (+) no CVA tenderness, (+) no vertebral tenderness Extremities: (+) normal range of motion, (+) non-tender, (+) normal inspection Neurologic/Psychiatric: (+) normal speech, (+) no motor defecits, (+) no sensory deficits Skin: (+) normal color Results Laboratory and Microbiology Lab and Micro Result Laboratory Tests Test 03/04/25 16:29 03/04/25 19:56 White Blood Count 9.7 K/uL (4.8-10.8) Red Blood Count 4.38 MIL/uL (4.00-5.50) Hemoglobin 12.4 g/dL (12.0-16.0) Hematocrit 38.1 % (36-48) Mean Corpuscular Volume 87.0 fL (79-99) Mean Corpuscular Hemoglobin 28.3 pg (27.0-33.0) Mean Corpuscular Hemoglobin Concent 32.5 g/dL (32.0-36.0) Red Cell Distribution Width 15.5 % (11.0-15.5) Platelet Count 265 K/uL (130-400) Mean Platelet Volume 10.1 fL (7.5-10.5) Nucleated Red Blood Cells 0.0 % (0.0-0.19) Sodium Level 141 mmol/L (136-145) Potassium Level 3.6 mmol/L (3.5-5.1) Chloride Level 104 mmol/L (101-111) Carbon Dioxide Level 26 mmol/L (21-32) Blood Urea Nitrogen 23 mg/dL (7-18) H Creatinine 1.1 mg/dL (0.5-1.0) H Glomerular Filtration Rate Calc 50 mL/min (>90) Random Glucose 104 mg/dL (70-105) Total Calcium 8.8 mg/dL (8.5-10.1) Magnesium Level 2.20 mg/dL (1.80-2.40) Total Bilirubin 0.7 mg/dL (0.2-1.0) Aspartate Amino Transf (AST/SGOT) 64 U/L (10-37) H Alanine Aminotransferase (ALT/SGPT) 68 U/L (12-78) Alkaline Phosphatase 112 U/L (50-136) Troponin I High Sensitivity 21 ng/L (4-50) Total Protein 7.4 g/dL (6.0-8.3) Albumin 3.6 g/dL (3.5-5.0) Urine Color COLORLESS (YELLOW) Urine Appearance CLEAR (CLEAR) Urine pH 7.0 (5.0-8.0) Urine Specific [place] 1.007 (1.001-1.031) Urine Protein NEGATIVE mg/dL (NEGATIVE) Urine Glucose (UA) NEGATIVE mg/dL (NEGATIVE) Urine Ketones NEGATIVE mg/dL (NEGATIVE) Urine Occult Blood NEGATIVE (NEGATIVE) Urine Nitrate NEGATIVE (NEGATIVE) Urine Bilirubin NEGATIVE mg/dL (NEGATIVE) Urine Urobilinogen 0.2 mg/dL (0.2-1.0) Urine Leukocyte Esterase NEGATIVE Ingrid/uL EKG/XRAY/US/CT/MRI EKG Comment Sinus rhythm Rate 73 MS 147 QT 487, QTcb [address] elevation MDM MDM: Differential diagnosis: Rationale: Tests considered and ordered secondary to shared decision making include: Previous outside records reviewed: Old ER visits. Risk of complication and/or morbidity or mortality of patient management: None Medications-Per medication reconciliation Need for hospitalization: Patient does not meet criteria for hospitalization. Need for emergency major/minor surgery: No There are no social concerns with this patient. Prescription drug management Prescriptions will include symptomatic care Patient's prior external medical records from other ER visits were reviewed by me as indicated. Prior testing and results from previous visits were reviewed. Prior tests were taken into account with medical decision making and resource utilization, independent historian/historians were used to obtain complete medical history. I independently interpreted the test that were performed, results were reviewed by me and considered findings on radiology if ordered. Medical management and examination interpretation discussions were had by me with other qualified healthcare professionals as indicated for the patient's care. We will admit for hypertensive emergency. Patient states she is on safe at home by herself and would like to come into the hospital for evaluation ED Course Orders Procedure Category Date Status Time 12 Lead Ekg Tracing- EKG 03/04/25 Logged Technical 16:18 Troponin I High LAB 03/04/25 Complete Sensitivity 16:18 Cbc Without LAB 03/04/25 Complete Differential 16:18 Comprehensive LAB 03/04/25 Complete Metabolic Panel 16:18 Magnesium LAB 03/04/25 Complete 16:18 Chest 1vw RAD 03/04/25 Resulted 16:24 Urinalysis Profile LAB 03/04/25 Complete 16:35 Diazepam 2 Mg Tab PHA 03/04/25 Complete (Valium 2 Mg Tab) 17:00 Labetalol 20mg Syg PHA 03/04/25 Complete (Trandate 20mg Syg) 18:00 0.9%Nacl 1000ml (Ns PHA 03/04/25 Complete 1000ml) 18:00 Hydralazine 20mg Inj PHA 03/04/25 Complete (Apresoline 20mg In 20:30 Current Medications Medications (Trade) Dose Ordered Sig/Kathy Route PRN Reason Start Time Stop Time Status Last Admin Dose Admin Diazepam (VALium 2 mg Tab) 2 mg ONCE ONCE PO 03/04/25 17:00 03/04/25 17:01 DC 03/04/25 17:46 Hydralazine HCl (APRESOLine 20MG INJ) 20 mg ONCE ONCE IV 03/04/25 20:30 03/04/25 20:31 DC 03/04/25 20:37 Labetalol HCl (TRANdate 20MG SYG) 10 mg ONCE ONCE IV 03/04/25 18:00 03/04/25 18:01 DC 03/04/25 17:47 Sodium Chloride 1,000 ml @ 0 mls/hr ONCE ONCE IV 03/04/25 18:00 03/04/25 18:01 DC 03/04/25 19:50 Vital Signs Date Time Temp Pulse Resp B/P (MAP) Pulse Ox O2 Delivery O2 Flow Rate FiO2 03/04/25 20:37 59 204/98 03/04/25 20:23 59 18 204/94 99 Room Air* 0 03/04/25 19:35 68 18 215/99 100 Room Air* 0 03/04/25 18:33 57 17 169/89 97 Room Air* 0 03/04/25 17:47 204/84 03/04/25 17:45 59 18 195/100 98 Room Air* 0 03/04/25 17:15 60 20 206/84 98 Room Air* 0 03/04/25 17:00 64 19 195/94 99 Room Air* 0 03/04/25 16:18 97.2 74 17 137/86 98 Room Air 0 DX & DISP Disposition: Inpatient Departure Impression: Primary Impression: Hypertensive urgency Condition: Stable Referrals: SHERINE WHIPPLE (PCP) ANUM ZAZUETA MD Mar 04, 2025 16:33 CASSIDY LEE MD Mar 04, 2025 18:10 JOE FRAUSTO MD Mar 04, 2025 20:44
[2025-03-04 16:34] LABS: NUCLEATED RED BLOOD CELLS 0.0 % (0.0-0.19); PLATELET COUNT (AUTO) 265.0 K/uL (130-400); RED BLOOD CELL COUNT(AUTO) 4.38 MIL/uL (4.00-5.50); RED CELL DISTRIBUTION WIDTH 15.5 % (11.0-15.5); WHITE BLOOD COUNT (AUTO) 9.7 K/uL (4.8-10.8)
--- NOTE | 2025-03-04 17:00 | NUR ---
TOOK PT TO RESTROOM VIA W/C DUE TO HER STATING SHE HAS WEAKNESS. SHE MISSED THE HAT FOR URINE COLLECTION. PT CONTINUES TO HYPERVENTILATE. EDUCATION ON WHY SHE SHOULD SLOW HER BREATHING AND THE ISSUES THAT CAN ARISE FROM HYPERVENTILATION OR EXACERBATE.
[2025-03-04 17:03] LABS: CREATININE 1.1 mg/dL (0.5-1.0); GLOMERULAR FILTR. RATE CALC 50.0 mL/min (>90); GLUCOSE,RANDOM 104.0 mg/dL (70-105); SODIUM SERUM 141.0 mmol/L (136-145); UREA NITROGEN, BLOOD 23.0 mg/dL (7-18)
--- NOTE | 2025-03-04 17:07 | HMCIMG ---
EXAM: CR Chest, 1 View. CLINICAL HISTORY: Rule out any acute cardiopulmonary pathology COMPARISON: None provided. FINDINGS: LUNGS: Emphysematous lung changes Cannot exclude patchy left lower lobe infiltrate. Lateral view suggested PLEURAL SPACES: No pleural effusion or pneumothorax. MEDIASTINUM: Cardiac silhouette prominent BONES: No aggressive appearing osseous lesion seen. IMPRESSION: 1. Emphysematous lung changes 2. Cannot exclude patchy left lower lobe infiltrate. Lateral view suggested 3. Cardiac silhouette prominent /[place]
[2025-03-04 17:08] LABS: ASPARTATE AMINOTRANSFERASE 64.0 U/L (10-37); TOTAL PROTEIN, SERUM 7.4 g/dL (6.0-8.3)
[2025-03-04] MEDS: diazePAM 2 MG TAB PO ONE (17:46)
--- NOTE | 2025-03-04 19:38 | NUR ---
REPORT ENDORSED TO JORDY CHILDS
--- NOTE | 2025-03-04 19:48 | NUR ---
PATIENT WALKED TO BATHROOM FOR URINE SAMPLE AT THIS TIME.
[2025-03-04] MEDS: 0.9%NACL 1000ML 1,000 ML IV ONE (19:50)
[2025-03-04 20:07] LABS: APPEARANCE,URINE CLEAR (CLEAR); GLUCOSE, URINE (UA) NEGATIVE (NEGATIVE); LEUKOCYTE ESTERASE ,URINE NEGATIVE Leu/uL (NEGATIVE); NITRATE,URINE NEGATIVE (NEGATIVE); OCCULT BLOOD,URINE NEGATIVE (NEGATIVE)
[2025-03-04 20:23] LABS: ADD UA MICROSCOPIC NO
--- NOTE | 2025-03-04 21:33 | HP ---
[facility] HISTORY AND PHYSICAL Date of Service: Mar 04, 2025 Time of Service: 21:04 PCP: Mike Payton HISTORY OF PRESENT ILLNESS: This is an79 year old female with past medical history of atrial fibrillation on Eliquis lower extremity DVT and hyperlipidemia and surgical history of [place] [facility] [place] who was brought by EMS with complaints of intermittent dizziness for the past 2-3 weeks as per patient.Patient states dizziness usually lasted for 2 minutes and resolved on its own.Today patient reports dizziness must have hit her so hard that she started getting anxious felt so numb on her legs body shaking she said and friendly neighbor was called and decided to call the EMS,thus prompted this admission.Patient reports this is the first time that happened to her.Patient reports she has no history of hypertension.Patient states she is taking Eliquis 5 mg po bid and last dose taken was @ 7:30 pm today.Patient BP in the ER was trending up from 135/86 to 206/84 mmHg. Seen and examined patient in the ER awake,alert and coherent,states she feels much better now.Patient denies headache,chest pain,palpitation,cough,shortness of breath,nausea,vomiting and abdominal pain.Patient is following commands and moving all extremities. Latest vital signs temperature 97.2, heart rate 61, blood pressure 179/83 saturation 99% on room air. Labs: CBC normal. BUN 23, creatinine 1.1, GFR 50 AST 64 troponin 21 urinalysis normal. EKG result revealed emphysematous lung changes. Can not exclude patchy left lower lobe infiltrate lateral views suggested. Cardiac silhouette prominent. EKG result revealed sinus rhythm heart rate 77 with right bundle branch block and left anterior fascicular block. While in the ER patient received diazepam 2 mg p.o., labetalol 10 mg IV hydralazine 20 mg IV NS 1 L bolus. We will admit patient for further medical management. REVIEW OF SYSTEMS CONSTITUTIONAL: Denies fevers, chills, or night sweats. No unintentional weight loss reported. NEUROLOGICAL: Complains of dizziness Denies headache, amaurosis fugax, motor weakness, sensory deficit, vgait abnormalities, or tremors. ENT: No hearing loss, otalgia, otorrhea, rhinitis, rhinorrhea, hoarseness, or sore throat. CARDIOVASCULAR: Denies any exertional angina, dyspnea on exertion, orthopnea, paroxysmal nocturnal dyspnea, palpitations, life-threatening arrhythmias, claudication. PULMONARY: Denies any shortness of breath, cough, phlegm/sputum, hemoptysis, pleuritic chest pain. SLEEP: Denies morning headaches, daytime somnolence or napping. Denies difficulty falling asleep, staying asleep, waking from sleep. Denies knowledge of snoring. GASTROINTESTINAL: Denies any type of dysphagia to either liquids or solids. Denies nausea, vomiting, pyrosis, early satiety, abdominal pain, diarrhea, constipation, or changes in stool consistency or caliber. Denies coffee-ground emesis, hematemesis, hematochezia, or melanotic stools. GENITOURINARY: Denies frequency, urgency, nocturia, hematuria or incontinence (Storage/Irritative symptoms.) Low urinary stream, straining to void, urinary intermittency or hesitancy, splitting of the voiding stream, terminal dribbling. ENDOCRINOLOGIC: Denies polyuria, polydipsia, polyphagia or heat/cold intolerances. HEMATOLOGIC: Denies thrombophilia/previous clots, or coagulopathy/bleeding disorders. ONCOLOGIC: Denies personal history of malignancy. DERMATOLOGIC: Denies rashes or pruritus. PSYCHIATRIC: Denies any suicidal or homicidal ideation. Denies hallucinations. PAST MEDICAL HISTORY: [ Lower extremity DVT, Hyperlipidemia and atrial fibrillation chronic anticoagulation ] PAST SURGICAL HISTORY: [Heart valve replacement and cardiac stents] PAST SOCIAL HISTORY: [ Patient lives alone. Patient denies alcohol tobacco and recreational drug use ] FAMILY HISTORY: [Hypertension, stroke, cardiovascular disease and cancer ] Coded Allergies: No Known Allergies (Unverified Allergy, Unknown, 06/18/17) PHYSICAL EXAM GENERAL APPEARANCE: The patient is awake, alert, and oriented, in no acute cardiopulmonary distress. NEUROLOGICAL: Cranial nerves II-XII grossly intact. Motor is 5/5 in bilateral upper and lower extremities proximal to distal. No sensory deficits. HEENT: Face is symmetric. Pupils are equal and reactive. Extraocular movements are intact. NECK: Supple. No JVD. No thyromegaly. No submental, submandibular, pre- /postauricular, occipital or supraclavicular lymphadenopathy. CHEST: Normal chest expansion. No Telemetry. LUNGS: Absence of any rales, rhonchi or any wheezing. CARDIOVASCULAR: Regular. S1 and S2 normal. No appreciable rubs, murmurs or gallops. ABDOMEN: Soft, nontender, and nondistended. There is no rebound, voluntary guarding, or rigidity. : Deferred. No [place]. EXTREMITIES: Non-edematous and not cyanotic. No clubbing. Good capillary refill. SKIN: No skin breakdown. Vital Sign (Last 24 Hours) 03/04/25 03/04/25 16:18 20:48 Temp 97.2 Pulse 61 Resp 18 B/P (MAP) 179/83 Pulse Ox 99 O2 Delivery Room Air* O2 Flow Rate 0 FiO2 21 LABS: Laboratory: Test 03/04/25 19:56 03/04/25 16:29 Range/Units Urine Color COLORLESS YELLOW Urine Appearance CLEAR CLEAR Urine pH 7.0 5.0-8.0 Urine Specific [place] 1.007 1.001-1.031 Urine Protein NEGATIVE NEGATIVE mg/dL Urine Glucose (UA) NEGATIVE NEGATIVE mg/dL Urine Ketones NEGATIVE NEGATIVE mg/dL Urine Occult Blood NEGATIVE NEGATIVE Urine Nitrate NEGATIVE NEGATIVE Urine Bilirubin NEGATIVE NEGATIVE mg/dL Urine Urobilinogen 0.2 0.2-1.0 mg/dL Urine Leukocyte Esterase NEGATIVE NEGATIVE Ingrid/uL White Blood Count 9.7 4.8-10.8 K/uL Red Blood Count 4.38 4.00-5.50 MIL/uL Hemoglobin 12.4 12.0-16.0 g/dL Hematocrit 38.1 36-48 % Mean Corpuscular Volume 87.0 79-99 fL Mean Corpuscular Hemoglobin 28.3 27.0-33.0 pg Mean Corpuscular Hemoglobin Concent 32.5 32.0-36.0 g/dL Red Cell Distribution Width 15.5 11.0-15.5 % Platelet Count 265 130-400 K/uL Mean Platelet Volume 10.1 7.5-10.5 fL Nucleated Red Blood Cells 0.0 0.0-0.19 % Sodium Level 141 136-145 mmol/L Potassium Level 3.6 3.5-5.1 mmol/L Chloride Level 104 101-111 mmol/L Carbon Dioxide Level 26 21-32 mmol/L Blood Urea Nitrogen 23 H 7-18 mg/dL Creatinine 1.1 H 0.5-1.0 mg/dL Glomerular Filtration Rate Calc 50 >90 mL/min Random Glucose 104 70-105 mg/dL Total Calcium 8.8 8.5-10.1 mg/dL Magnesium Level 2.20 1.80-2.40 mg/dL Total Bilirubin 0.7 0.2-1.0 mg/dL Aspartate Amino Transf (AST/SGOT) 64 H 10-37 U/L Alanine Aminotransferase (ALT/SGPT) 68 12-78 U/L Alkaline Phosphatase 112 50-136 U/L Troponin I High Sensitivity 21 4-50 ng/L Total Protein 7.4 6.0-8.3 g/dL Albumin 3.6 3.5-5.0 g/dL DIAGNOSTICS / RADIOLOGY: [ ] ASSESSMENT: Hypertensive urgency POA Atrial fibrillation on chronic anticoagulation POA Hyperlipidemia POA History of lower extremity DVT POA History of Mitral valve replacement POA PLAN: We will admit patient in medical telemetry We will start on heart healthy diet We will start on famotidine 20 mg p.o. daily daily for GI prophylaxis We will replace electrolytes as needed per protocol We will continue home dose of amiodarone, Eliquis and atorvastatin We will add prn medication for fever,pain,cough , nausea and vomiting We will reconcile home meds once medlist available Fall precaution We will request a CT head without contrast We will request for carotid doppler Orthostatic V/S Q shift x 2 We will seek Cardiology consultation We will request labs in am Further orders to follow depending on above results Case discussed with attending physician and came up with above treatment and plan of care. ADVANCED CARE PLANNING 1. Which of the following were discussed? Hospice Care - No Therapeutic options - Yes Advance Directives - No Other discussions - 2. Discussed with who? Patient 3. Voluntary nature of this service was explained to the patient? Yes 4. Amount of time spent - __24 min 5. Reviewed by Physician? (if this service was performed by NPP) Yes Patient seen and examined by me. Agree with note by ORACLE FUSION MIDDLEWARE ARCHITECT SEE ADDITIONAL ORDERS PER CHART DISCUSSED WITH NURSING STAFF AARON HERNANDEZ LINK TRAINER OPERATOR Mar 04, 2025 21:33
[2025-03-04] MEDS: 0.9%NACL 1000ML 1,000 ML IV SCH (22:19)
--- NOTE | 2025-03-04 22:27 | HMCIMG ---
EXAM: CT Head Without IV contrast. CLINICAL HISTORY: on eliquis ,persistent dizziness TECHNIQUE: Axial computed tomography images of the head/brain without intravenous contrast. COMPARISON: None provided. FINDINGS: BRAIN: Age-appropriate changes. No evidence of acute hemorrhage. No mass lesion. No CT evidence for acute territorial infarct. No midline shift or extra-axial collections. VENTRICLES: No hydrocephalus. ORBITS: The orbits are unremarkable. SINUSES AND MASTOIDS: The paranasal sinuses and mastoid air cells are clear. BONES: No fracture. SOFT TISSUES: Unremarkable. IMPRESSION: No acute intracranial abnormality. /[place]
[2025-03-04 22:33] VITALS: O2SAT 98
--- NOTE | 2025-03-04 23:45 | HMCIMG ---
EXAMINATION: DUPLEX ULTRASOUND EXAMINATION OF THE BILATERAL CAROTID AND VERTEBRAL ARTERIES. CLINICAL HISTORY: Persistent dizziness. COMPARISON: CT head without contrast from the same day. TECHNIQUE: Real-time ultrasound scan of the bilateral carotid and vertebral arteries, 2-D grayscale, with color Doppler flow and spectral waveform analysis. FINDINGS: Color and spectral Doppler interrogation of the carotid vessels on the right demonstrates peak systolic velocities as follows: CCA (Proximal and distal): 91 and 77 cm/s, respectively. ECA: 112 cm/s ICA (Proximal, mid, and distal): 56, 63, and 83 cm/s, respectively. The vertebral artery demonstrates antegrade flow: 104 cm/s. Right ICA/CCA ratio: 0.9 Peak systolic velocities on the left are as follows: CCA (Proximal and distal): 91 and 75 cm/s, respectively. ECA: 145 cm/s ICA (Proximal, mid, and distal): 107, 96, and 153 cm/s, respectively. The vertebral artery demonstrates antegrade flow: 63 cm/s. Left ICA/CCA ratio: 1.7 Both the common carotid arteries and their branches reveal mild intimal thickening. There are calcified plaques in the bilateral bulb without significant stenosis. The left internal carotid artery is tortuous. IMPRESSION: Mildly tortuous left internal carotid artery with increased peak systolic velocity in the distal segment with about 50% to 69% stenosis. Mild intimal thickening in bilateral carotid arteries and their branches. Calcified plaques in the bilateral bulb without significant stenosis. There is no hemodynamically significant stenosis or flow-limiting lesions in the remainder of the arteries. /[place]
[2025-03-05] VITALS (7 sets, daily range): BP systolic 112–184; BP diastolic 59–99; PULSE 62–78; RESP 18–24; TEMP 97.7–98.4
--- NOTE | 2025-03-05 05:02 | EKG ---
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
[2025-03-05 05:36] LABS: IMMATURE GRANULOCYTE ABSOLUTE 0.03 K/uL (0-1); NUCLEATED RED BLOOD CELLS 0.0 % (0.0-0.19); PLATELET COUNT (AUTO) 236 K/uL (130-400); RED BLOOD CELL COUNT(AUTO) 3.95 MIL/uL (4.00-5.50); RED CELL DISTRIBUTION WIDTH 15.6 % (11.0-15.5); WHITE BLOOD COUNT (AUTO) 8.6 K/uL (4.8-10.8)
[2025-03-05 06:05] LABS: ASPARTATE AMINOTRANSFERASE 54.0 U/L (10-37); CREATININE 0.7 mg/dL (0.5-1.0); GLOMERULAR FILTR. RATE CALC 87.0 mL/min (>90); GLUCOSE,RANDOM 89.0 mg/dL (70-105); SODIUM SERUM 139.0 mmol/L (136-145); TOTAL PROTEIN, SERUM 6.3 g/dL (6.0-8.3); UREA NITROGEN, BLOOD 16.0 mg/dL (7-18)
[2025-03-05] MEDS: FAMOTIDINE 20MG TAB PO SCH (09:04)
--- NOTE | 2025-03-05 09:17 | PN ---
[facility] PROGRESS NOTE Date of Service: Mar 05, 2025 Time of Service: 09:16 SUBJECTIVE: [Chief Complaint: Intermittent dizziness for the past 23 weeks, with acute worsening today. History of Present Illness: 79-year-old female with a history of atrial fibrillation (on Eliquis), prior lower extremity DVT, hyperlipidemia, and mitral valve replacement (2019), admitted overnight after EMS was called for a severe episode of dizziness. The patient reports that over the past 23 weeks, she has experienced brief episodes of dizziness lasting about 2 minutes, which resolved spontaneously. Today, the dizziness was more intense, associated with numbness in her legs, body shaking, and anxiety. She denies any prior similar severe episodes. She also reports vomiting during rounds. No history of hypertension. Last dose of Eliquis was taken at 7:30 pm. Associated Symptoms: Denies headache, chest pain, palpitations, cough, shortness of breath, or abdominal pain. Denies visual changes, motor weakness, sensory loss, or gait abnormalities. No fevers, chills, night sweats, or unintentional weight loss. No urinary or bowel changes. During rounds today, the patient experienced vomiting and was started on ondansetron (Zofran) 4 mg IV every 6 hours as needed. Cardiology consult is pending. Diagnostic results were discussed with the patient and a family member at the bedside; all questions were addressed. ] REVIEW OF SYSTEMS CONSTITUTIONAL: Denies fevers, chills, or night sweats. No unintentional weight loss reported. NEUROLOGICAL: Complains of dizziness Denies headache, amaurosis fugax, motor we akness, sensory deficit, vgait abnormalities, or tremors. ENT: No hearing loss, otalgia, otorrhea, rhinitis, rhinorrhea, hoarseness, or sore throat. CARDIOVASCULAR: Denies any exertional angina, dyspnea on exertion, orthopnea, paroxysmal nocturnal dyspnea, palpitations, life-threatening arrhythmias, claudication. PULMONARY: Denies any shortness of breath, cough, phlegm/sputum, hemoptysis, pleuritic chest pain. SLEEP: Denies morning headaches, daytime somnolence or napping. Denies difficulty falling asleep, staying asleep, waking from sleep. Denies knowledge of snoring. GASTROINTESTINAL: Denies any type of dysphagia to either liquids or solids. Denies nausea, vomiting, pyrosis, early satiety, abdominal pain, diarrhea, constipation, or changes in stool consistency or caliber. Denies coffee-ground emesis, hematemesis, hematochezia, or melanotic stools. GENITOURINARY: Denies frequency, urgency, nocturia, hematuria or incontinence (Storage/Irritative symptoms.) Low urinary stream, straining to void, urinary intermittency or hesitancy, splitting of the voiding stream, terminal dribbling. ENDOCRINOLOGIC: Denies polyuria, polydipsia, polyphagia or heat/cold intolerances. HEMATOLOGIC: Denies thrombophilia/previous clots, or coagulopathy/bleeding disorders. ONCOLOGIC: Denies personal history of malignancy. DERMATOLOGIC: Denies rashes or pruritus. PSYCHIATRIC: Denies any suicidal or homicidal ideation. Denies hallucinations. PHYSICAL EXAM GENERAL APPEARANCE: The patient is awake, alert, and oriented, in no acute cardiopulmonary distress. NEUROLOGICAL: Cranial nerves II-XII grossly intact. Motor is 5/5 in bilateral upper and lower extremities proximal to distal. No sensory deficits. HEENT: Face is symmetric. Pupils are equal and reactive. Extraocular movements are intact. NECK: Supple. No JVD. No thyromegaly. No submental, submandibular, pre- /postauricular, occipital or supraclavicular lymphadenopathy. CHEST: Normal chest expansion. No Telemetry. LUNGS: Absence of any rales, rhonchi or any wheezing. CARDIOVASCULAR: Regular. S1 and S2 normal. No appreciable rubs, murmurs or gallops. ABDOMEN: Soft, nontender, and nondistended. There is no rebound, voluntary guarding, or rigidity. : Deferred. No Carrasco. EXTREMITIES: Non-edematous and not cyanotic. No clubbing. Good capillary refill. SKIN: No skin breakdown. Vital Signs (last 8hr) Date Time Temp Pulse Resp B/P (MAP) Pulse Ox O2 Delivery O2 Flow Rate FiO2 03/05/25 08:00 97.9 67 19 158/85 100 Room Air 03/05/25 03:46 97.7 62 20 133/74 99 Room Air LABS: Laboratory: Test 03/05/25 04:56 03/04/25 19:56 Range/Units White Blood Count 8.6 4.8-10.8 K/uL Red Blood Count 3.95 L 4.00-5.50 MIL/uL Hemoglobin 11.1 L 12.0-16.0 g/dL Hematocrit 33.5 L 36-48 % Mean Corpuscular Volume 84.8 79-99 fL Mean Corpuscular Hemoglobin 28.1 27.0-33.0 pg Mean Corpuscular Hemoglobin Concent 33.1 32.0-36.0 g/dL Red Cell Distribution Width 15.6 H 11.0-15.5 % Platelet Count 236 130-400 K/uL Mean Platelet Volume 11.1 H 7.5-10.5 fL Immature Granulocyte % (Auto) 0.3 0-1 % Neutrophils (%) (Auto) 76.3 40.0-77.0 % Lymphocytes (%) (Auto) 15.6 L 21.0-51.0 % Monocytes (%) (Auto) 6.6 3.0-13.0 % Eosinophils (%) (Auto) 0.3 0.0-8.0 % Basophils (%) (Auto) 0.9 0.0-5.0 % Neutrophils # (Auto) 6.5 1.8-7.7 K/uL Lymphocytes # (Auto) 1.3 1.0-4.8 K/uL Monocytes # (Auto) 0.6 0.1-1.0 K/uL Eosinophils # (Auto) 0.03 0.00-0.70 K/uL Basophils # (Auto) 0.08 0.00-0.20 K/uL Absolute Immature Granulocyte (auto 0.03 0-1 K/uL Nucleated Red Blood Cells 0.0 0.0-0.19 % Sodium Level 139 136-145 mmol/L Potassium Level 3.7 3.5-5.1 mmol/L Chloride Level 106 101-111 mmol/L Carbon Dioxide Level 24 21-32 mmol/L Blood Urea Nitrogen 16 7-18 mg/dL Creatinine 0.7 0.5-1.0 mg/dL Glomerular Filtration Rate Calc 87 >90 mL/min Random Glucose 89 70-105 mg/dL Total Calcium 8.5 8.5-10.1 mg/dL Magnesium Level 2.00 1.80-2.40 mg/dL Total Bilirubin 0.6 0.2-1.0 mg/dL Direct Bilirubin 0.2 0.0-0.3 mg/dL Aspartate Amino Transf (AST/SGOT) 54 H 10-37 U/L Alanine Aminotransferase (ALT/SGPT) 60 12-78 U/L Alkaline Phosphatase 98 50-136 U/L Troponin I High Sensitivity 30 4-50 ng/L Total Protein 6.3 6.0-8.3 g/dL Albumin 3.1 L 3.5-5.0 g/dL Thyroid Stimulating Hormone (TSH) 1.76 0.36-3.74 uIU/mL Urine Color COLORLESS YELLOW Urine Appearance CLEAR CLEAR Urine pH 7.0 5.0-8.0 Urine Specific [place] 1.007 1.001-1.031 Urine Protein NEGATIVE NEGATIVE mg/dL Urine Glucose (UA) NEGATIVE NEGATIVE mg/dL Urine Ketones NEGATIVE NEGATIVE mg/dL Urine Occult Blood NEGATIVE NEGATIVE Urine Nitrate NEGATIVE NEGATIVE Urine Bilirubin NEGATIVE NEGATIVE mg/dL Urine Urobilinogen 0.2 0.2-1.0 mg/dL Urine Leukocyte Esterase NEGATIVE NEGATIVE Ingrid/uL Current Medications Medications (Trade) Dose Ordered Sig/Kathy Route PRN Reason Start Time Stop Time Status Last Admin Dose Admin Famotidine (Pepcid 20mg Tab) 20 mg DAILY PO 03/05/25 09:00 04/04/25 08:59 03/05/25 09:04 20 MG Hydralazine HCl (APRESOLine 20MG INJ) 10 mg Q6H PRN IV For:SBP above 160;DBP above 90 03/04/25 22:00 04/03/25 21:59 Sodium Chloride 1,000 ml @ 100 mls/hr Q10H IV 03/04/25 22:00 04/03/25 21:59 03/04/25 22:19 100 MLS/HR DIAGNOSTICS / RADIOLOGY: [ ] ASSESSMENT: Intractable vomiting, POA Hypertensive urgency POA Atrial fibrillation on chronic anticoagulation POA Hyperlipidemia POA History of lower extremity DVT POA History of Mitral valve replacement POA PLAN: Continue admission to medical telemetry Continue heart healthy diet Continue famotidine 20 mg p.o. daily daily for GI prophylaxis We will replace electrolytes as needed per protocol We will continue home dose of amiodarone, Eliquis and atorvastatin We will add prn medication for fever,pain,cough , nausea and vomiting We will reconcile home meds once medlist available We will start Xanax 0.25 mg for anxiety We will request for carotid Doppler Orthostatic V/S Q shift x 2 We will seek Cardiology consultation We will request labs in am Further orders to follow depending on above results Fall precaution Case discussed with attending physician and came up with above treatment and plan of care. ATTESTATION BY PHYSICIAN I have seen and examined the patient. I reviewed the documentation, medical decision making, and treatment plan as noted by the mid-level provider above. I agree with the findings and plan of care. ANA LUISA PHAN MD, [facility] Mar 05, 2025 09:17
--- NOTE | 2025-03-05 12:00 | NUR ---
PT. EXPERIENCING N/V--ZOFRAN ADMINISTERED PER PROVIDER ORDER.
[2025-03-05] MEDS: LACTULOSE 20 GM/30 ML UDCUP PO ONE (13:13)
--- NOTE | 2025-03-05 13:13 | NUR ---
Pt. states "I am anxious, and I have not had a proper bowel movement." Pt. breathing heavily and trembling. Xanax and Lactulose administered as per provider order.
[2025-03-05] MEDS ORDERED: LACTULOSE 20 GM/30 ML UDCUP PO PRN (13:30)
--- NOTE | 2025-03-05 14:24 | NUR ---
DCP: INITIAL ASSESSMENT Patient lives alone. She has no home services. Patient has BPM at home. She is able to complete ADLs independently and drives. PCP is Tata Mckeon. Pharmacy is [facility] in [place]. Patient voiced no safety concerns regarding returning home and states she has no difficulty with housing or buying food. DCP is home.
--- NOTE | 2025-03-05 16:56 | CONS ---
Cardiology Consult Note Cardiology Attending: Brendan Cai Consulting Physician: Hospitalist Date of Service: 03/05/25 Reason for Consult: Hypertensive urgency HPI: This is a 79-year-old female with a past medical history of severe mitral regurgitation status post minimally invasive bioprosthetic mitral valve replacement done in May of 2018, atrial flutter, on anticoagulation, chronic systolic congestive heart failure (LVEF 40-45%) nonobstructive CAD (LHC/coronary angiogram done in 2019) and anxiety who presents with dizziness, three weeks induration. These symptoms began spontaneously and over the ensuing timeframe remained constant, and occurred on a daily basis. These symptoms were present throughout the day, were exacerbated by physical activity, and improved with anxiety medication. Associated symptoms included chest pain, that was rare (2 episodes over the last three weeks). Pertinent negatives included headache, syncope, palpitations, shortness of breath, dyspnea on exertion, PND, orthopnea, abdominal pain, weight gain, or lower extremity swelling/edema. The persistence of symptoms prompted the patient who comes in the hospital where she was found to have elevated blood pressures and was diagnosed with hypertensive urgency. Cardiology has been consulted for treatment recommendations regarding this issue. PMH: Listed above PSH: Listed above FH: Significant for CAD, HTN and DM II. SH: Denies alcohol, tobacco, or illicit drug use. Medications: Eliquis 5 mg b.i.d., amiodarone 2 mg daily, atorvastatin 20 mg daily Allergies: Coded Allergies: No Known Allergies (Unverified Allergy, Unknown, 06/18/17) Review of systems: General: Denies fever or chills HEENT: Denies changes in vision, earache or sore throat Neck: Denies pain or stiffness Cardio: As per the HPI Pulm: Denies SOB, coughing or wheezing GI: Denies abdominal pain, nausea, vomiting, diarrhea, or constipation. MSK: Denies muscle or back pain. Heme: Denies anemia, easy bruising, or bleeding. Neuro: As per the HPI. Psych: Positive for anxiety. Physical Exam: Vital Signs Date Time Temp Pulse Resp B/P (MAP) Pulse Ox O2 Delivery O2 Flow Rate FiO2 03/05/25 12:30 112/59 03/05/25 12:00 98.1 78 21 96 Room Air 03/05/25 08:00 0 21 General: Alert and oriented x 3. NAD HEENT: NC/AT. Oral mucosa is moist. Neck: No masses, JVD, or carotid bruits Lungs: NRD. SCM. B/L CTA. No wheezing, rales or rhonchi. Cardio: Rate @ 77bpm. Normal S1 and S2. 2/6 diastolic murmur heard best at the apex. Abdomen: Soft. NT. ND. Normal active bowel sounds x 4 quadrants. Extremities: No edema, clubbing or cyanosis. +2 pulses noted throughout. Neuro: CN II-XII were grossly intact. No focal deficits. Labs: Laboratory Tests Test 03/04/25 19:56 03/05/25 04:56 03/05/25 13:03 Range/Units Urine Color COLORLESS YELLOW Urine Appearance CLEAR CLEAR Urine pH 7.0 5.0-8.0 Urine Specific [place] 1.007 1.001-1.031 Urine Protein NEGATIVE NEGATIVE mg/dL Urine Glucose (UA) NEGATIVE NEGATIVE mg/dL Urine Ketones NEGATIVE NEGATIVE mg/dL Urine Occult Blood NEGATIVE NEGATIVE Urine Nitrate NEGATIVE NEGATIVE Urine Bilirubin NEGATIVE NEGATIVE mg/dL Urine Urobilinogen 0.2 0.2-1.0 mg/dL Urine Leukocyte Esterase NEGATIVE NEGATIVE Ingrid/uL White Blood Count 8.6 4.8-10.8 K/uL Red Blood Count 3.95 L 4.00-5.50 MIL/uL Hemoglobin 11.1 L 12.0-16.0 g/dL Hematocrit 33.5 L 36-48 % Mean Corpuscular Volume 84.8 79-99 fL Mean Corpuscular Hemoglobin 28.1 27.0-33.0 pg Mean Corpuscular Hemoglobin Concent 33.1 32.0-36.0 g/dL Red Cell Distribution Width 15.6 H 11.0-15.5 % Platelet Count 236 130-400 K/uL Mean Platelet Volume 11.1 H 7.5-10.5 fL Immature Granulocyte % (Auto) 0.3 0-1 % Neutrophils (%) (Auto) 76.3 40.0-77.0 % Lymphocytes (%) (Auto) 15.6 L 21.0-51.0 % Monocytes (%) (Auto) 6.6 3.0-13.0 % Eosinophils (%) (Auto) 0.3 0.0-8.0 % Basophils (%) (Auto) 0.9 0.0-5.0 % Neutrophils # (Auto) 6.5 1.8-7.7 K/uL Lymphocytes # (Auto) 1.3 1.0-4.8 K/uL Monocytes # (Auto) 0.6 0.1-1.0 K/uL Eosinophils # (Auto) 0.03 0.00-0.70 K/uL Basophils # (Auto) 0.08 0.00-0.20 K/uL Absolute Immature Granulocyte (auto 0.03 0-1 K/uL Nucleated Red Blood Cells 0.0 0.0-0.19 % Sodium Level 139 136-145 mmol/L Potassium Level 3.7 3.5-5.1 mmol/L Chloride Level 106 101-111 mmol/L Carbon Dioxide Level 24 21-32 mmol/L Blood Urea Nitrogen 16 7-18 mg/dL Creatinine 0.7 0.5-1.0 mg/dL Glomerular Filtration Rate Calc 87 >90 mL/min Random Glucose 89 70-105 mg/dL Total Calcium 8.5 8.5-10.1 mg/dL Magnesium Level 2.00 1.80-2.40 mg/dL Total Bilirubin 0.6 0.2-1.0 mg/dL Direct Bilirubin 0.2 0.0-0.3 mg/dL Aspartate Amino Transf (AST/SGOT) 54 H 10-37 U/L Alanine Aminotransferase (ALT/SGPT) 60 12-78 U/L Alkaline Phosphatase 98 50-136 U/L Troponin I High Sensitivity 30 4-50 ng/L Total Protein 6.3 6.0-8.3 g/dL Albumin 3.1 L 3.5-5.0 g/dL Thyroid Stimulating Hormone (TSH) 1.76 0.36-3.74 uIU/mL Whole Blood Glucose 113 H 70-110 MG/DL Assessment: 1. Dizziness 2. Hypertensive urgency 3. severe mitral regurgitation status post minimally invasive bioprosthetic mitral valve replacement done in May of 2018 4. Paroxysmal atrial flutter, on anticoagulation 5. Chronic systolic congestive heart failure (LVEF 40-45%) 6. Anxiety 7. Constipation Plan: 1. Dizziness -etiology: Multifactorial, with hypertensive urgency, anxiety, and BPPV all contributing -please see problem 2. For treatment details regarding the hypertensive urgency. -management of the patient's underlying anxiety and BPPV will be deferred to the hospitalist service 2. Hypertensive urgency -stable -blood pressure range: 141-184/80-92mmHg -the above-mentioned findings are concerning and warrants further treatment. We will start the patient on losartan 25 mg BID. We will up titrate the medication as needed. 3. Severe mitral regurgitation status post minimally invasive bioprosthetic mitral valve replacement done in May of 2018 -stable 4. Paroxysmal atrial flutter, on anticoagulation -stable -continue amiodarone 200 mg daily and Eliquis 5 mg BID 5. Chronic systolic congestive heart failure (LVEF 40-45%) -stable -PE: The lungs are bilaterally clear to auscultation. No wheezing, rales, or rhonchi noted. No edema seen in the lower extremities. -the above-mentioned findings indicate clinical stability. The patient will be started on losartan to address hypertensive urgency. She will continue on amiodarone 200 mg daily Thank you for this interesting consult and allowing us to participate in the care of your patient. Further recommendations to follow. BRENDAN CAI MD Mar 05, 2025 16:56
[2025-03-06] VITALS (7 sets, daily range): BP systolic 116–173; BP diastolic 40–85; PULSE 60–76; RESP 17–19; TEMP 97.3–98.1
[2025-03-06 04:27] LABS: NUCLEATED RED BLOOD CELLS 0.0 % (0.0-0.19); PLATELET COUNT (AUTO) 282.0 K/uL (130-400); RED BLOOD CELL COUNT(AUTO) 4.36 MIL/uL (4.00-5.50); RED CELL DISTRIBUTION WIDTH 16.0 % (11.0-15.5); WHITE BLOOD COUNT (AUTO) 12.9 K/uL (4.8-10.8)
[2025-03-06 04:51] LABS: ASPARTATE AMINOTRANSFERASE 56.0 U/L (10-37); CREATININE 0.9 mg/dL (0.5-1.0); GLOMERULAR FILTR. RATE CALC 64.0 mL/min (>90); GLUCOSE,RANDOM 92.0 mg/dL (70-105); SODIUM SERUM 140.0 mmol/L (136-145); TOTAL PROTEIN, SERUM 6.8 g/dL (6.0-8.3); UREA NITROGEN, BLOOD 20.0 mg/dL (7-18)
--- NOTE | 2025-03-06 08:37 | PN ---
[facility] CARDIOLOGY PROGRESS NOTE Date Patient Seen: Mar 06, 2025 Time of Visit: 08:31 Interval History: This is an 79-year-old female with a past medical history of severe mitral regurgitation status post minimally invasive bioprosthetic mitral valve replace ment done in May of 2018, paroxysmal atrial flutter, on anticoagulation, chronic systolic congestive heart failure (LVEF 40-45%) nonobstructive CAD (LHC/coronary angiogram done in 2019) and anxiety who presents with dizziness, three weeks induration. These symptoms began spontaneously and over the ensuing timeframe remained constant, and occurred on a daily basis. These symptoms were present throughout the day, were exacerbated by physical activity, and improved with anxiety medication. Associated symptoms included chest pain, that was rare (2 episodes over the last three weeks). She denied any headache, syncope, palpitations, shortness of breath, dyspnea on exertion, PND, orthopnea, abdominal pain, weight gain, or lower extremity swelling/edema. The persistence of symptoms prompted the patient who comes in the hospital where she was found to have elevated blood pressures into the 200 systolic range and was admitted for further management of hypertensive urgency. She has been initiated on losartan and blood pressure this morning is in the 130 range. She complains of abdominal discomfort and constipation for several days with poor appetite and no bowel movement. She offers no complaints of chest pain or shortness of breath. Physical Examination: GENERAL: No acute distress. HEAD: Normal with no signs of head trauma. EYES: PERRLA, EOMI, conjunctiva and sclera normal. NECK: Supple without JVD. There is no tenderness, lymphadenopathy, or masses. No thyromegaly. Normal carotid upstrokes without bruits. LUNGS: Clear breath sounds bilaterally. No wheezes, or rhonchi. HEART: Normal rate and rhythm. Normal S1 and S2 there is a 2/6 holosystolic murmur at the apex, no gallop or rub. VASC: Peripheral pulses +2 bilaterally. EXT: No clubbing, cyanosis or edema. NEURO: Awake, alert, and oriented x3. No focal neurological deficits noted. Laboratory: Hematology Labs: Test 03/06/25 04:21 03/05/25 04:56 Range/Units White Blood Count 12.9 #H 4.8-10.8 K/uL Red Blood Count 4.36 4.00-5.50 MIL/uL Hemoglobin 12.3 12.0-16.0 g/dL Hematocrit 37.4 36-48 % Mean Corpuscular Volume 85.8 79-99 fL Mean Corpuscular Hemoglobin 28.2 27.0-33.0 pg Mean Corpuscular Hemoglobin Concent 32.9 32.0-36.0 g/dL Red Cell Distribution Width 16.0 H 11.0-15.5 % Platelet Count 282 130-400 K/uL Mean Platelet Volume 10.3 7.5-10.5 fL Nucleated Red Blood Cells 0.0 0.0-0.19 % Immature Granulocyte % (Auto) 0.3 0-1 % Neutrophils (%) (Auto) 76.3 40.0-77.0 % Lymphocytes (%) (Auto) 15.6 L 21.0-51.0 % Monocytes (%) (Auto) 6.6 3.0-13.0 % Eosinophils (%) (Auto) 0.3 0.0-8.0 % Basophils (%) (Auto) 0.9 0.0-5.0 % Neutrophils # (Auto) 6.5 1.8-7.7 K/uL Lymphocytes # (Auto) 1.3 1.0-4.8 K/uL Monocytes # (Auto) 0.6 0.1-1.0 K/uL Eosinophils # (Auto) 0.03 0.00-0.70 K/uL Basophils # (Auto) 0.08 0.00-0.20 K/uL Absolute Immature Granulocyte (auto 0.03 0-1 K/uL Chemistry Labs: Test 03/06/25 04:21 03/05/25 13:03 03/05/25 04:56 Range/Units Sodium Level 140 136-145 mmol/L Potassium Level 4.6 3.5-5.1 mmol/L Chloride Level 105 101-111 mmol/L Carbon Dioxide Level 26 21-32 mmol/L Blood Urea Nitrogen 20 H 7-18 mg/dL Creatinine 0.9 0.5-1.0 mg/dL Glomerular Filtration Rate Calc 64 >90 mL/min Random Glucose 92 70-105 mg/dL Total Calcium 9.1 8.5-10.1 mg/dL Magnesium Level 2.20 1.80-2.40 mg/dL Total Bilirubin 1.1 #H 0.2-1.0 mg/dL Aspartate Amino Transf (AST/SGOT) 56 H 10-37 U/L Alanine Aminotransferase (ALT/SGPT) 62 12-78 U/L Alkaline Phosphatase 109 50-136 U/L Total Protein 6.8 6.0-8.3 g/dL Albumin 3.2 L 3.5-5.0 g/dL Whole Blood Glucose 113 H 70-110 MG/DL Direct Bilirubin 0.2 0.0-0.3 mg/dL Troponin I High Sensitivity 30 4-50 ng/L Thyroid Stimulating Hormone (TSH) 1.76 0.36-3.74 uIU/mL Diagnostics / Radiology: Impression and Plan: 1. Dizziness 2. Hypertensive urgency 3. Severe mitral regurgitation status post minimally invasive bioprosthetic mitral valve replacement done in May of 2018 4. Paroxysmal atrial flutter, on anticoagulation 5. Chronic systolic congestive heart failure (LVEF 40-45%), stable and compensated 6. Anxiety 7. Constipation Plan: 1. Dizziness -etiology: Multifactorial, with hypertensive urgency, anxiety, and BPPV all contributing -management of the patient's underlying anxiety and BPPV will be deferred to the hospitalist service 2. Hypertensive urgency -continue with recently added losartan 25 mg BID. We will up titrate the medication as needed. 3. Severe mitral regurgitation status post minimally invasive bioprosthetic mitral valve replacement done in May of 2018 -stable 4. Paroxysmal atrial flutter, on anticoagulation -stable -continue amiodarone 200 mg daily and Eliquis 5 mg BID 5. Chronic systolic congestive heart failure (LVEF 40-45%) -clinically stable stable -continue with the addition of losartan to her medical regimen 6. Constipation: -minimal benefit from suppository and we will provide fleets enema -Cardiology will sign off and re-evaluate upon request. Continue titrate losartan as needed to maintain blood pressure of 140/80 or less -follow-up with Dr. Gerard Martin as an outpatient in 1-2 weeks after discharge PHYSICIAN ATTESTATION OF PHYSICIAN WATER TRUCK DRIVER DOCUMENTATION: I attest that I was physically present for the gonzales portions of the service and evaluated the patient with the Physician Keyboard Instrument Repairer, and I reviewed and discussed the case with the Physician Keyboard Instrument Repairer and made modifications to the Physician Keyboard Instrument Repairer's findings and plans of care as documented above AIDA GIL Mar 06, 2025 08:37 ELI BISHOP MD Mar 06, 2025 15:25
--- NOTE | 2025-03-06 15:10 | PN ---
[facility] PROGRESS NOTE Date of Service: Mar 06, 2025 Time of Service: 14:47 SUBJECTIVE: [Patient reports that her dizziness has improved since admission. She was evaluated by cardiology; Dr. Cai assessed her as stable from a cardiac standpoint, attributing her dizziness to a combination of elevated blood pressure, anxiety, and possible BPPV. Losartan was initiated for blood pressure control, and her current heart failure and arrhythmia management were continued. No acute cardiac issues were identified. However, today the patient continues to complain of nausea and anal pain. She is experiencing ongoing constipation. Interventions so far have included bisacodyl (Dulcolax) suppository, enema, acetaminophen (Tylenol), and lactulose. Polyethylene glycol 3350 (MiraLax) will also be administered to further assist with bowel movements. REVIEW OF SYSTEMS CONSTITUTIONAL: Denies fevers, chills, or night sweats. No unintentional weight loss reported. NEUROLOGICAL: Complains of dizziness Denies headache, amaurosis fugax, motor weakness, sensory deficit, vgait abnormalities, or tremors. ENT: No hearing loss, otalgia, otorrhea, rhinitis, rhinorrhea, hoarseness, or sore throat. CARDIOVASCULAR: Denies any exertional angina, dyspnea on exertion, orthopnea, paroxysmal nocturnal dyspnea, palpitations, life-threatening arrhythmias, claudication. PULMONARY: Denies any shortness of breath, cough, phlegm/sputum, hemoptysis, pleuritic chest pain. SLEEP: Denies morning headaches, daytime somnolence or napping. Denies difficulty falling asleep, staying asleep, waking from sleep. Denies knowledge of snoring. GASTROINTESTINAL: Denies any type of dysphagia to either liquids or solids. Denies nausea, vomiting, pyrosis, early satiety, abdominal pain, diarrhea, constipation, or changes in stool consistency or caliber. Denies coffee-ground emesis, hematemesis, hematochezia, or melanotic stools. GENITOURINARY: Denies frequency, urgency, nocturia, hematuria or incontinence (Storage/Irritative symptoms.) Low urinary stream, straining to void, urinary intermittency or hesitancy, splitting of the voiding stream, terminal dribbling. ENDOCRINOLOGIC: Denies polyuria, polydipsia, polyphagia or heat/cold intolerances. HEMATOLOGIC: Denies thrombophilia/previous clots, or coagulopathy/bleeding disorders. ONCOLOGIC: Denies personal history of malignancy. DERMATOLOGIC: Denies rashes or pruritus. PSYCHIATRIC: Denies any suicidal or homicidal ideation. Denies hallucinations. PHYSICAL EXAM GENERAL APPEARANCE: The patient is awake, alert, and oriented, in no acute cardiopulmonary distress. NEUROLOGICAL: Cranial nerves II-XII grossly intact. Motor is 5/5 in bilateral upper and lower extremities proximal to distal. No sensory deficits. HEENT: Face is symmetric. Pupils are equal and reactive. Extraocular movements are intact. NECK: Supple. No JVD. No thyromegaly. No submental, submandibular, pre-/postauricular, occipital or supraclavicular lymphadenopathy. CHEST: Normal chest expansion. No Telemetry. LUNGS: Absence of any rales, rhonchi or any wheezing. CARDIOVASCULAR: Regular. S1 and S2 normal. No appreciable rubs, murmurs or gallops. ABDOMEN: Soft, nontender, and nondistended. There is no rebound, voluntary guarding, or rigidity. : Deferred. No Carrasco. EXTREMITIES: Non-edematous and not cyanotic. No clubbing. Good capillary refill. SKIN: No skin breakdown. Vital Signs (last 8hr) Date Time Temp Pulse Resp B/P (MAP) Pulse Ox O2 Delivery O2 Flow Rate FiO2 03/06/25 08:00 98.1 70 17 134/64 98 Room Air LABS: Laboratory: Test 03/06/25 04:21 03/05/25 13:03 03/05/25 04:56 03/04/25 19:56 Range/Units White Blood Count 12.9 #H 4.8-10.8 K/uL Red Blood Count 4.36 4.00-5.50 MIL/uL Hemoglobin 12.3 12.0-16.0 g/dL Hematocrit 37.4 36-48 % Mean Corpuscular Volume 85.8 79-99 fL Mean Corpuscular Hemoglobin 28.2 27.0-33.0 pg Mean Corpuscular Hemoglobin Concent 32.9 32.0-36.0 g/dL Red Cell Distribution Width 16.0 H 11.0-15.5 % Platelet Count 282 130-400 K/uL Mean Platelet Volume 10.3 7.5-10.5 fL Nucleated Red Blood Cells 0.0 0.0-0.19 % Sodium Level 140 136-145 mmol/L Potassium Level 4.6 3.5-5.1 mmol/L Chloride Level 105 101-111 mmol/L Carbon Dioxide Level 26 21-32 mmol/L Blood Urea Nitrogen 20 H 7-18 mg/dL Creatinine 0.9 0.5-1.0 mg/dL Glomerular Filtration Rate Calc 64 >90 mL/min Random Glucose 92 70-105 mg/dL Total Calcium 9.1 8.5-10.1 mg/dL Magnesium Level 2.20 1.80-2.40 mg/dL Total Bilirubin 1.1 #H 0.2-1.0 mg/dL Aspartate Amino Transf (AST/SGOT) 56 H 10-37 U/L Alanine Aminotransferase (ALT/SGPT) 62 12-78 U/L Alkaline Phosphatase 109 50-136 U/L Total Protein 6.8 6.0-8.3 g/dL Albumin 3.2 L 3.5-5.0 g/dL Whole Blood Glucose 113 H 70-110 MG/DL Immature Granulocyte % (Auto) 0.3 0-1 % Neutrophils (%) (Auto) 76.3 40.0-77.0 % Lymphocytes (%) (Auto) 15.6 L 21.0-51.0 % Monocytes (%) (Auto) 6.6 3.0-13.0 % Eosinophils (%) (Auto) 0.3 0.0-8.0 % Basophils (%) (Auto) 0.9 0.0-5.0 % Neutrophils # (Auto) 6.5 1.8-7.7 K/uL Lymphocytes # (Auto) 1.3 1.0-4.8 K/uL Monocytes # (Auto) 0.6 0.1-1.0 K/uL Eosinophils # (Auto) 0.03 0.00-0.70 K/uL Basophils # (Auto) 0.08 0.00-0.20 K/uL Absolute Immature Granulocyte (auto 0.03 0-1 K/uL Direct Bilirubin 0.2 0.0-0.3 mg/dL Troponin I High Sensitivity 30 4-50 ng/L Thyroid Stimulating Hormone (TSH) 1.76 0.36-3.74 uIU/mL Urine Color COLORLESS YELLOW Urine Appearance CLEAR CLEAR Urine pH 7.0 5.0-8.0 Urine Specific [place] 1.007 1.001-1.031 Urine Protein NEGATIVE NEGATIVE mg/dL Urine Glucose (UA) NEGATIVE NEGATIVE mg/dL Urine Ketones NEGATIVE NEGATIVE mg/dL Urine Occult Blood NEGATIVE NEGATIVE Urine Nitrate NEGATIVE NEGATIVE Urine Bilirubin NEGATIVE NEGATIVE mg/dL Urine Urobilinogen 0.2 0.2-1.0 mg/dL Urine Leukocyte Esterase NEGATIVE NEGATIVE Ingrid/uL Current Medications Medications (Trade) Dose Ordered Sig/Kathy Route PRN Reason Start Time Stop Time Status Last Admin Dose Admin Amiodarone HCl (pacERONE 200MG) 200 mg DAILY PO 03/06/25 09:00 04/05/25 08:59 03/06/25 09:38 200 MG Apixaban (EliquIS) 5 mg BID PO 03/05/25 21:00 04/04/25 20:59 03/06/25 09:39 5 MG Atorvastatin Calcium (LIPItor 20MG) 20 mg HS PO 03/05/25 21:00 04/04/25 20:59 03/05/25 21:30 20 MG Bisacodyl (DulcoLAX) 10 mg DAILY PRN RC constipation 03/05/25 12:00 04/04/25 11:59 03/05/25 21:31 10 MG Famotidine (Pepcid 20mg Tab) 20 mg DAILY PO 03/05/25 09:00 03/05/25 09:15 DC 03/05/25 09:04 20 MG Hydralazine HCl (APRESOLine 20MG INJ) 10 mg Q6H PRN IV For:SBP above 160;DBP above 90 03/04/25 22:00 04/03/25 21:59 03/06/25 03:56 10 MG Lactulose (Constulose 20gm/ 30ml Udcup) 20 gm BID PRN PO CONSTIPATION 03/05/25 13:30 04/04/25 13:29 Losartan Potassium (CozAAR 25MG TAB) 25 mg BID PO 03/05/25 21:00 04/04/25 20:59 03/06/25 09:38 25 MG Morphine Sulfate (morPHINE 2MG SYG) 2 mg Q4H PRN IVP SEVERE PAIN (7-10) 03/05/25 09:30 03/12/25 09:29 03/05/25 10:04 2 MG Ondansetron HCl (zoFRAN 4MG INJ) 4 mg Q6H PRN IVP NAUSEA/VOMITING 03/05/25 12:00 04/04/25 11:59 03/05/25 21:30 4 MG Pantoprazole Sodium (PROTonix 40MG INJ) 40 mg BID IVP 03/05/25 21:00 04/04/25 20:59 03/06/25 09:38 40 MG Polyethylene Glycol (MIRalax 3350 17 GM POWD.PACK) 17 gm DAILY PO 03/07/25 09:00 04/06/25 08:59 Sodium Chloride 1,000 ml @ 100 mls/hr Q10H IV 03/04/25 22:00 03/05/25 09:15 DC 03/04/25 22:19 100 MLS/HR DIAGNOSTICS / RADIOLOGY: [ ] ASSESSMENT: 1. Dizziness, improved - Etiology likely multifactorial: previously attributed to hypertensive urgency, anxiety, and possible BPPV. Cardiology evaluation found no acute cardiac etiology. Symptoms have improved. 2. Hypertensive urgency - Recent elevated blood pressures, now being managed with initiation of losartan. Cardiac status stable. 3. Chronic systolic heart failure (LVEF 4045%) - Stable, no evidence of decompensation. On guideline-directed medical therapy. 4. Paroxysmal atrial flutter, on anticoagulation - Stable, on amiodarone and Eliquis. 5. Severe mitral regurgitation, s/p bioprosthetic mitral valve replacement (2018) - Stable, no acute issues. 6. Constipation - Ongoing, with associated nausea and anal pain. Multiple interventions trialed. 7. Anxiety - Contributing to dizziness; ongoing management. 8. Nausea and anal pain - Likely secondary to constipation. PLAN: 1. Dizziness - Continue to monitor. No acute intervention needed at this time. 2. Hypertensive urgency - Continue losartan 25 mg BID; monitor blood pressure closely. Titrate as needed for target BP. 3. Chronic systolic heart failure - Continue current heart failure regimen. Monitor for signs of volume overload or decompensation. 4. Atrial flutter - Continue amiodarone 200 mg daily and Eliquis 5 mg BID. Monitor for arrhythmia symptoms. 5. Mitral valve replacement - No acute issues. Continue routine surveillance. 6. Constipation - Continue bowel regimen: bisacodyl suppository, enema, lactulose, and MiraLax as needed. Monitor for bowel movement frequency and abdominal symptoms. Reassess if no improvement or if symptoms worsen. 7. Nausea and anal pain - Symptomatic management. Address underlying constipation. Consider topical analgesia for anal pain if needed. 8. Anxiety - Continue current management. Reassess for need of medication adjustment or additional support if symptoms persist. Case discussed with Dr. Pinedo above plan was formulated ATTESTATION BY PHYSICIAN I have seen and examined the patient. I reviewed the documentation, medical decision making, and treatment plan as noted by the mid-level provider above. I agree with the findings and plan of care. ANA LUISA PINEDO MD, [facility] Mar 06, 2025 15:10
[2025-03-07 00:53] VITALS: BP 137/66; PULSE 73; RESP 18; TEMP 97.5
[2025-03-07 04:22] VITALS: BP 161/77; PULSE 70; RESP 18; TEMP 98.8
[2025-03-07 05:06] LABS: NUCLEATED RED BLOOD CELLS 0.0 % (0.0-0.19); PLATELET COUNT (AUTO) 264.0 K/uL (130-400); RED BLOOD CELL COUNT(AUTO) 4.43 MIL/uL (4.00-5.50); RED CELL DISTRIBUTION WIDTH 15.9 % (11.0-15.5); WHITE BLOOD COUNT (AUTO) 10.0 K/uL (4.8-10.8)
[2025-03-07 05:27] LABS: ASPARTATE AMINOTRANSFERASE 60.0 U/L (10-37); CREATININE 0.9 mg/dL (0.5-1.0); GLOMERULAR FILTR. RATE CALC 64.0 mL/min (>90); GLUCOSE,RANDOM 87.0 mg/dL (70-105); SODIUM SERUM 140.0 mmol/L (136-145); TOTAL PROTEIN, SERUM 6.7 g/dL (6.0-8.3); UREA NITROGEN, BLOOD 23.0 mg/dL (7-18)
[2025-03-07 05:29] VITALS: BP 159/93
[2025-03-07 08:00] VITALS: BP 162/88; PULSE 68; RESP 20; TEMP 97.6
--- NOTE | 2025-03-07 12:20 | DS ---
Discharge Summary Hospital Course Summary: The patient admitted to hospital March 04, 2025 with the following history of the present illness: This is an79 year old female with past medical history of atrial fibrillation on Eliquis lower extremity DVT and hyperlipidemia and surgical history of mitral valve replacement (on 05/2018 by [facility] ) who was brought by EMS with complaints of intermittent dizziness for the past 2-3 weeks as per patient.Patient states dizziness usually lasted for 2 minutes and resolved on its own.Today patient reports dizziness must have hit her so hard that she started getting anxious felt so numb on her legs body shaking she said and friendly neighbor was called and decided to call the EMS,thus prompted this admission.Patient reports this is the first time that happened to her.Patient reports she has no history of hypertension.Patient states she is taking Eliquis 5 mg po bid and last dose taken was @ 7:30 pm today.Patient BP in the ER was trending up from 135/86 to 206/84 mmHg. Seen and examined patient in the ER awake,alert and coherent,states she feels much better now.Patient denies headache,chest pain,palpitation,cough,shortness of breath,nausea,vomiting and abdominal pain.Patient is following commands and moving all extremities. Latest vital signs temperature 97.2, heart rate 61, blood pressure 179/83 saturation 99% on room air. Labs: CBC normal. BUN 23, creatinine 1.1, GFR 50 AST 64 troponin 21 urinalysis normal. EKG result revealed emphysematous lung changes. Can not exclude patchy left lower lobe infiltrate lateral views suggested. Cardiac silhouette prominent. EKG result revealed sinus rhythm heart rate 77 with right bundle branch block and left anterior fascicular block. While in the ER patient received diazepam 2 mg p.o., labetalol 10 mg IV hydralazine 20 mg IV NS 1 L bolus HOSPITAL COURSE 03/06 [Patient reports that her dizziness has improved since admission. She was evaluated by cardiology; Dr. Cai assessed her as stable from a cardiac standpoint, attributing her dizziness to a combination of elevated blood pressure, anxiety, and possible BPPV. Losartan was initiated for blood pressure control, and her current heart failure and arrhythmia management were continued. No acute cardiac issues were identified. However, today the patient continues to complain of nausea and anal pain. She is experiencing ongoing constipation. Interventions so far have included bisacodyl (Dulcolax) suppository, enema, acetaminophen (Tylenol), and lactulose. Polyethylene glycol 3350 (MiraLax) will also be administered to further assist with bowel movements. 03/07 today patient is alert oriented x3, hemodynamically stable, she would like to be discharged home, denies dizziness, no blurry vision, no chest pain, no shortness a breath, no nausea, no vomiting, no abdominal pain, tolerating diet, no diarrhea, no constipation, no melena, hematochezia, no hematemesis, no dysuria. Side Splitter(s): Cardiology services Assessment/Plan: Final Diagnosis 1. Dizziness, improved 2. Hypertensive urgency 3. Chronic systolic heart failure (LVEF 4045%) 4. Paroxysmal atrial flutter, on anticoagulation 5. Severe mitral regurgitation, s/p bioprosthetic mitral valve replacement (2018) 6. Constipation 7. Anxiety 8. 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 Patient to return to the hospital if condition changes. Patient agreed with plan and understood the information provided. Home Medications: Active Scripts Amiodarone HCl (Amiodarone HCl) 200 Mg Tablet, 200 MG PO DAILY, #30 TAB 3 Refills Prov:VANDA GARNER MD 07/22/17 Reported Medications Atorvastatin Calcium (Atorvastatin Calcium) 20 Mg Tablet, 20 MG PO HS, TAB 08/20/21 Apixaban (Eliquis) 5 Mg Tablet, 5 MG PO BID, TAB 07/22/17 Discontinued Reported Medications Nitrofurantoin Macrocrystal (Nitrofurantoin) 100 Mg Capsule, 100 MG PO AD, CAP 08/20/21 Cholecalciferol (Vitamin D3) (Vitamin D3) 125 Mcg Tablet, 125 MCG PO AD, TAB 08/20/21 Zinc Sulfate (Zinc) 50 Mg Tablet, 50 MG PO DAILY, TAB 08/20/21 Time spent arranging discharge: 31-60 minutes BECKIE BRADFORD MD Mar 07, 2025 12:20
== END 2025-03-07 12:45 | disposition home or self-care (01) | DRG 305 ==
LOC: EDH 16:17 → EDHIP 21:34 → 3AH 23:00
PROVIDERS: ADMIT Hospitalist; ATTEND Hospitalist
DX: I16.0 Hypertensive urgency (principal); I50.22 Chronic systolic (congestive) heart failure; I48.92 Unspecified atrial flutter; Z79.01 Long term (current) use of anticoagulants; I11.0 Hypertensive heart disease with heart failure; E11.9 Type 2 diabetes mellitus without complications; Z95.3 Presence of xenogenic heart valve; I45.2 Bifascicular block; E78.00 Pure hypercholesterolemia, unspecified; K59.00 Constipation, unspecified; I34.0 Nonrheumatic mitral (valve) insufficiency; F41.9 Anxiety disorder, unspecified; I25.10 Atherosclerotic heart disease of native coronary artery without angina pectoris; Z82.3 Family history of stroke; Z82.49 Family history of ischemic heart disease and other diseases of the circulatory system; Z86.718 Personal history of other venous thrombosis and embolism; Z95.5 Presence of coronary angioplasty implant and graft
CPT/HCPCS: 36415; 70450; 71045; 80048; 80053; 80076; 81003; 82948; 83735; 84443; 84484; 85025; 85027; 85730; 93005; 93880; 96374; 96375; 99285; G0378; J0360; J2270; J2405; J2470; J7030